=== PATIENT | female | born 1930 | race Caucasian/White ===

== ENCOUNTER 2016-11-11 10:13 | Inpatient (IN) ==
[2016-11-11] MEDS ORDERED: NS 2,000 ML ONE (10:33)
--- NOTE | 2016-11-11 10:35 | PROVIDER DOCUMENTATION ---
HPI-Syncope/Dizziness - General Stated Complaint: N/V Time Seen by Provider: 11/11/16 10:34 Source: patient, EMS Allergies/Adverse Reactions: Patient Allergies Allergy/AdvReac Type Severity Reaction Status Date / Time codeine Allergy Mild ITCHING Verified 11/11/16 11:04 Sulfa (Sulfonamide Allergy Mild ITCHING Verified 11/11/16 11:04 Antibiotics) mycins Allergy HIVES Uncoded 06/02/16 18:22 Home Medications: Home Medication List Medication Instructions Recorded Confirmed Last Taken Type LISINOpril [Prinivil] 20 mg PO DAILY 07/16/14 11/11/16 06/02/16 08:00 History Isosorbide Mononitrate E.r. [Imdur] 30 mg PO DAILY 09/23/14 11/11/16 06/02/16 History Levothyroxine [Synthroid] 50 mcg PO DAILY 09/23/14 11/11/16 06/02/16 History Omeprazole [Prilosec] 40 mg PO DAILY 09/23/14 11/11/16 06/02/16 History Furosemide 40 mg PO BID 10/29/15 11/11/16 06/02/16 08:00 History Mesalamine D.r. [Asacol Hd] 800 mg PO BID #60 tablet 11/08/15 11/11/16 06/02/16 08:00 Rx Metoprolol Succinate E.r. [Toprol 25 mg PO DAILY #30 tablet 11/08/15 11/11/16 08:00 Rx Xl] Multivits,Ca,Minerals/Iron/FA 1 each PO DAILY 06/02/16 11/11/16 06/02/16 08:30 History [Thera-M Tablet] Polyethylene Glycol 3350 [Miralax] 17 gm PO EVERY OTHER DAY 06/02/16 11/11/16 08:30 History Aspirin 81 mg PO DAILY #60 chewtab 06/07/16 11/11/16 Unknown Rx Digoxin [Lanoxin] 125 microgm PO DAILY #60 tablet 06/07/16 11/11/16 Unknown Rx Diltiazem C.d. [Cardizem Cd] 120 mg PO DAILY #30 capsule 06/07/16 11/11/16 Unknown Rx Iron Carbonyl/Ascorbic Acid 1 each PO BID #60 tablet 06/07/16 11/11/16 Unknown Rx [Icar-C] Sucralfate [Carafate Liquid] 1 gm PO Q6HR #0 udc 06/07/16 11/11/16 Unknown Rx - History of Present Illness-Syncope/Dizzy Nature of Presenting Problem: 86 yo WF dementia patient and permanent resident of [facility]. Noted to be hypotensive, sycopal/presyncopal this morning. They said she vomited but EMS did not report any emesis on site or in the truck. I do not have a baseline level of response to compare her present status. Prior Episodes: reports: no prior history Onset/Duration: reports: this morning Timing: reports: intermittent Position/Activity at time of episode: reports: sitting Symptoms prior to episode: reports: nausea/vomiting Context: reports: became unresponsive, almost passed out Loss of Consciousness: unsure Current Symptoms: reports: sweaty. denies: breathing difficulty, abdominal pain , nausea, vomiting - Dizziness Severity in ED: reports: severe Any recent trauma/injury?: reports: none Review of Systems - Adult - REVIEW OF SYSTEMS - ADULT Constitutional: reports: no symptoms reported, other (diaphoresis) Eyes: reports: no symptoms reported Ears, Nose, Mouth & Throat: reports: no symptoms reported Cardiovascular: reports: other (low bp) Respiratory: reports: no symptoms reported Gastrointestinal: reports: no symptoms reported Musculoskeletal: reports: no symptoms reported Integumentary: reports: no symptoms reported Neurological: reports: no symptoms reported Psychiatric: reports: no symptoms reported Past History - Adult - PAST MEDICAL HISTORY-ADULT Review of Records: reports: Old Records Reviewed, Nursing Assessment Review, Medications Reviewed, Social history reviewed & non-contributory. Major Childhood Illnesses: reports: denies history Cardiovascular: reports: CAD, CHF, HTN, murmur Gastrointestinal: reports: GERD, ulcer Genitourinary: reports: incontinence Neurological: reports: Alzheimer's, dementia Endocrine/Immune: reports: Diabetes, thyroid disorder - PRIOR SURGERIES/PROCEDURES Surgical/Procedure History: reports: EGD, CABG, cardiac stent, hysterectomy, hernia repair - PRIOR HOSPITALIZATIONS Prior Hospitalizations: reports: none - IMMUNIZATION STATUS Childhood Immunizations: See Nurse Assessment Flu Vaccine: See Nurse Assessment - FAMILY HISTORY Family History: reviewed, not pertinent Physical Exam-General - PHYSICAL EXAM-ADULT Initial Vital Signs Reviewed: Yes - CONSTITUTIONAL General Appearance: lethargic - EYES Eyes: PERRL/EOMI, pale conjunctivae - HEAD, EARS, NOSE, MOUTH & THROAT HENMT: moist mucous membranes - NECK Neck: negative: carotid bruit - RESPIRATORY Respiratory: lungs clear, normal breath sounds. negative: respiratory distress , stridor, wheezing - CARDIOVASCULAR Cardiovascular: normal peripheral pulses, regular rate, rhythm, no edema, no gallop, no JVD, no murmur - GASTROINTESTINAL (ABDOMEN) Abdominal Exam: normal bowel sounds, non tender, soft - MUSCULOSKELETAL Back Exam: no CVA tenderness Extremity: no pedal edema, no calf tenderness, other (left foot deformity) - SKIN Integumentary: pallor - NEUROLOGIC Neurologic: other (wehn we put her in trendelenburg she suddenly sat up and looked at us meaningfully, then laid back down gently and was again very lethargic, pupils equal and reactive.) - PSYCHIATRIC Psych/Mental Status: disoriented x 3 Progress - PLAN OF CARE/RESULTS Progress/Plan/Lab Results: Vital Signs - 8 hr 11/11/16 10:26 11/11/16 11:07 11/11/16 11:37 Temperature 97.6 F Pulse Rate 106 H 91 H 94 H Respiratory Rate 32 H 24 20 Blood Pressure 65/40 94/72 102/65 Laboratory Results - last 24 hr 11/11/16 11/11/16 11/11/16 10:37 10:37 10:37 WBC 16.31 H RBC 3.89 L Hgb 8.3 L Hct 28.9 L MCV 74.3 L MCH 21.3 L MCHC 28.7 L RDW Std Deviation 17.4 H Plt Count 663 H MPV 9.7 Immature Gran % (Auto) 0.3 Neut % (Auto) 75.0 Lymph % (Auto) 18.4 L Blount % (Auto) 4.9 Eos % (Auto) 1.2 Baso % (Auto) 0.2 Immature Gran # (Auto) 0.05 H Neut # (Auto) 12.22 H Lymph # (Auto) 3.00 Blount # (Auto) 0.80 H Eos # (Auto) 0.20 Baso # (Auto) 0.04 PT 10.7 INR 1.02 PTT (Actin FS) 22.4 Specimen Type Sample Site pH pCO2 pO2 HCO3 Base Excess Oxyhemoglobin ABG O2 Sat (Calculated) ABG O2 Saturation ABG Carboxyhemoglobin ABG Methemoglobin Tyler Test Total Hemoglobin Lactate Liter Flow Blood Gas Modality Sodium 139 Potassium 4.7 Chloride 101 Carbon Dioxide 20 L Anion Gap 18 BUN 36 H Creatinine 1.5 H Estimated GFR/1.73 m2 33 BUN/Creatinine Ratio 24 Glucose 325 H Calculated Osmolality 298 Calcium 9.8 Total Bilirubin 0.24 AST 24 ALT 10 Alkaline Phosphatase 78 Creatine Kinase 54 Troponin T Total Protein 7.5 Albumin 3.1 L Globulin 4.4 Albumin/Globulin Ratio 0.7 Urine Source Urine Color Urine Turbidity Urine pH Ur Specific [place] Urine Protein Ur Glucose (Stick) Ur Ketones (Stick) Urine Blood Urine Nitrite Urine Bilirubin Urobilinogen Dipstick Urine Leukocytes Urine WBC (Auto) Urine RBC (Auto) U Epithel Cells (Auto) Urine Bacteria (Auto) Urine Crystals Small Round Cells Urine Casts Urine Yeast-like Cells Urine Opiates Screen Ur Oxycodone Screen Ur Methadone, Qual Ur Barbiturates Screen Ur Phencyclidine Scrn Ur Amphetamines Screen U Benzodiazepines Scrn Urine Cocaine Screen U Cannabinoids Screen 11/11/16 11/11/16 11/11/16 10:37 10:56 10:56 WBC RBC Hgb Hct MCV MCH MCHC RDW Std Deviation Plt Count MPV Immature Gran % (Auto) Neut % (Auto) Lymph % (Auto) Blount % (Auto) Eos % (Auto) Baso % (Auto) Immature Gran # (Auto) Neut # (Auto) Lymph # (Auto) Blount # (Auto) Eos # (Auto) Baso # (Auto) PT INR PTT (Actin FS) Specimen Type Sample Site pH pCO2 pO2 HCO3 Base Excess Oxyhemoglobin ABG O2 Sat (Calculated) ABG O2 Saturation ABG Carboxyhemoglobin ABG Methemoglobin Tyler Test Total Hemoglobin Lactate Liter Flow Blood Gas Modality Sodium Potassium Chloride Carbon Dioxide Anion Gap BUN Creatinine Estimated GFR/1.73 m2 BUN/Creatinine Ratio Glucose Calculated Osmolality Calcium Total Bilirubin AST ALT Alkaline Phosphatase Creatine Kinase Troponin T 0.050 Total Protein Albumin Globulin Albumin/Globulin Ratio Urine Source CATH Urine Color BROWN Urine Turbidity TURBID Urine pH 5.5 Ur Specific [place] 1.013 Urine Protein 70 A Ur Glucose (Stick) NEGATIVE Ur Ketones (Stick) NEGATIVE Urine Blood LARGE A Urine Nitrite NEGATIVE Urine Bilirubin NEGATIVE Urobilinogen Dipstick NORMAL Urine Leukocytes MODERATE A Urine WBC (Auto) TNTC A Urine RBC (Auto) TNTC A U Epithel Cells (Auto) >10 A Urine Bacteria (Auto) NEGATIVE Urine Crystals NONE SEEN Small Round Cells NONE SEEN Urine Casts NONE SEEN Urine Yeast-like Cells NONE SEEN Urine Opiates Screen NONE DETECTED Ur Oxycodone Screen NONE DETECTED Ur Methadone, Qual NONE DETECTED Ur Barbiturates Screen NONE DETECTED Ur Phencyclidine Scrn NONE DETECTED Ur Amphetamines Screen NONE DETECTED U Benzodiazepines Scrn NONE DETECTED Urine Cocaine Screen NONE DETECTED U Cannabinoids Screen NONE DETECTED 11/11/16 11:05 WBC RBC Hgb Hct MCV MCH MCHC RDW Std Deviation Plt Count MPV Immature Gran % (Auto) Neut % (Auto) Lymph % (Auto) Blount % (Auto) Eos % (Auto) Baso % (Auto) Immature Gran # (Auto) Neut # (Auto) Lymph # (Auto) Blount # (Auto) Eos # (Auto) Baso # (Auto) PT INR PTT (Actin FS) Specimen Type ARTERIAL Sample Site R BRACHIAL pH 7.38 pCO2 34 L pO2 78 HCO3 21.4 Base Excess -4.5 L Oxyhemoglobin 94.9 L ABG O2 Sat (Calculated) 11.3 L ABG O2 Saturation 98.8 ABG Carboxyhemoglobin 2.00 ABG Methemoglobin 1.9 H Tyler Test NO Total Hemoglobin 8.4 L Lactate 3.50 H Liter Flow 2.0 Blood Gas Modality CANNULA Sodium Potassium Chloride Carbon Dioxide Anion Gap BUN Creatinine Estimated GFR/1.73 m2 BUN/Creatinine Ratio Glucose Calculated Osmolality Calcium Total Bilirubin AST ALT Alkaline Phosphatase Creatine Kinase Troponin T Total Protein Albumin Globulin Albumin/Globulin Ratio Urine Source Urine Color Urine Turbidity Urine pH Ur Specific [place] Urine Protein Ur Glucose (Stick) Ur Ketones (Stick) Urine Blood Urine Nitrite Urine Bilirubin Urobilinogen Dipstick Urine Leukocytes Urine WBC (Auto) Urine RBC (Auto) U Epithel Cells (Auto) Urine Bacteria (Auto) Urine Crystals Small Round Cells Urine Casts Urine Yeast-like Cells Urine Opiates Screen Ur Oxycodone Screen Ur Methadone, Qual Ur Barbiturates Screen Ur Phencyclidine Scrn Ur Amphetamines Screen U Benzodiazepines Scrn Urine Cocaine Screen U Cannabinoids Screen Orders Category Date Time Status Saline Loc NOW Care 11/11/16 10:35 Active CHEST-PORTABLE [RAD] Stat Exams 11/11/16 10:35 Taken HEAD W/O CONTRAST [CT] Stat Exams 11/11/16 10:47 Taken ABG [RESP] Routine Lab 11/11/16 11:05 Completed BLOOD CULTURE [BLDCUL] Stat Lab 11/11/16 10:41 Received CBC WITH ELECTRONIC DIFF [HEME] Stat Lab 11/11/16 10:37 Completed CK PROFILE [SP CHEM] Stat Lab 11/11/16 10:37 Completed COMPREHENSIVE METABOLIC PANEL [CHEM] Stat Lab 11/11/16 10:37 Completed LACTATE, PLASMA [CHEM] Timed Lab 11/11/16 13:00 Uncollected PROTIME WITH INR [COAG] Stat Lab 11/11/16 10:37 Completed PTT [COAG] Stat Lab 11/11/16 10:37 Completed TROPONIN T Stat Lab 11/11/16 10:37 Completed URINALYSIS W/POSS RFLX CULT-1 [URINALYSIS] Stat Lab 11/11/16 10:56 Completed URINE CULTURE [RM] Routine Lab 11/11/16 11:10 Received URINE DRUG SCREEN Stat Lab 11/11/16 10:56 Completed URINE MANUAL MICROSCOPIC [URINALYSIS] Stat Lab 11/11/16 10:56 Completed 0.9% Sodium Chloride Inj [Ns] 1,000 ml Med 11/11/16 10:33 Discontinued .ROUTE As Directed 0.9% Sodium Chloride Inj [Ns] 1,000 ml Med 11/11/16 11:06 Active IV 999 mls/hr 0.9% Sodium Chloride Inj [Ns] 1,000 ml Med 11/11/16 11:07 Active IV 999 mls/hr 0.9% Sodium Chloride Inj [Ns] 190 ml Med 11/11/16 12:00 Active IV As Directed Piperacil/Tazobact 3.375 gm/Ns [Zosyn 3.375 gm/Ns] Med 11/11/16 11:24 Discontinued 3.375 gm in 50 ml IV NOW Pulse Oximetry Stat Oth 11/11/16 10:35 Completed EKG [EKG] Stat Ther 11/11/16 10:35 Ordered Result Diagrams: 11/11/16 10:37 11/11/16 10:37 - CHANGE OF SHIFT REPORT (ED Provider) Report Given and Care Transferred to:: [facility] Time of Transfer: 11:56 Departure - Departure Time of Disposition Decision: 11:56 DIAGNOSIS: Sepsis, UTI (urinary tract infection), Hypotension Disposition: ADMITTED INPATIENT 09 Certified Medical Emergency: Emergent Condition: Stable - Critical Care Note This patient required my direct & personal management of CC.: No
[2016-11-11 11:02] LABS: URINE SOURCE CATH
[2016-11-11 11:06] LABS: URINE MICRO REVIEW NEEDED? YES
[2016-11-11] MEDS ORDERED: NS 1,000 ML IV ONE ×2 (11:06→11:07)
[2016-11-11 11:08] LABS: BASO% 0.2 % (0.0-0.8); EOS% 1.2 % (0.0-10.0); HEMATOCRIT 28.9 % (37.0-47.0); HEMOGLOBIN 8.3 g/dL (12.0-16.0); IMM GRAN# 0.05 X1000 (0.0-0.04); IMM GRAN% 0.3 % (0.0-0.5); LYMPH% 18.4 % (20.5-51.1); MANUAL DIFF NEEDED? NO; MCH 21.3 PG (27-31); MCHC 28.7 g/dL (33-37); MCV 74.3 FL (81-99); MONO% 4.9 % (1.7-9.3); MPV 9.7 FL (7.4-10.4); PLT 663 X1000 (130-400); RBC 3.89 XMIL (4.2-5.4)
[2016-11-11 11:08] LABS: BILIRUBIN URINE NEGATIVE (NEGATIVE); BLOOD URINE LARGE (NEGATIVE); COLOR BROWN; GLUCOSE URINE NEGATIVE (NEGATIVE); LEUKOCYTES URINE MODERATE (NEGATIVE); NITRITE URINE NEGATIVE (NEGATIVE); PH URINE 5.5; PROTEIN URINE 70 mg/dL (NEGATIVE); SP GRAVITY URINE 1.013; TURBIDITY URINE TURBID (CLEAR); UROBILINOGEN URINE NORMAL (NORMAL)
[2016-11-11 11:08] LABS: ALLEN TEST NO; BE -4.5 mmoll (-3.0-3.0); BLOOD TYPE ARTERIAL; DRAW SITE R BRACHIAL; METHB 1.9 % (0.0-1.5); O2(CT) 11.3 mL/dL (15.0-23.0); PCO2(98.6) 34 mmHg (35-45); PO2(98.6) 78 mmHg (60-100); SAMPLE BLOOD; SAO2 98.8 % (95.0-100.0); THB 8.4 g/dL (11.5-17.4); pH(98.6) 7.38 (7.35-7.45)
[2016-11-11 11:09] LABS: MODALITY CANNULA
[2016-11-11 11:09] LABS: URINE RBC TNTC /HPF (<10); URINE WBC TNTC /HPF (<10)
[2016-11-11 11:10] LABS: UR EPITHELIAL CELLS >10 /HPF (<10); URINE BACTERIA NEGATIVE /HPF; URINE CASTS NONE SEEN; URINE CRYSTALS NONE SEEN; URINE CULTURE NEEDED? YES; URINE SMALL ROUND CELLS NONE SEEN
[2016-11-11 11:20] LABS: INR 1.02; PROTIME 10.7 Seconds (9.2-11.7); PTT 22.4 Seconds (22.0-36.0)
[2016-11-11] MEDS ORDERED: ZOSYN 3.375 GM/NS 3.375 GM/50 ML IVPB IV ONE (11:24)
[2016-11-11 11:49] LABS: UR AMPHETAMINES QUAL NONE DETECTED (NONE DETECT); UR BARBITUATES QUAL NONE DETECTED (NONE DETECT); UR BENZODIAZEPIN QUAL NONE DETECTED (NONE DETECT); UR CANNABINOIDS QUAL NONE DETECTED (NONE DETECT); UR COCAINE QUAL NONE DETECTED (NONE DETECT); UR METHADONE QUAL NONE DETECTED (NONE DETECT); UR OPIATES QUAL NONE DETECTED (NONE DETECT); UR OXYCODONE QUAL NONE DETECTED (NONE DETECT); UR PCP QUAL NONE DETECTED (NONE DETECT)
[2016-11-11 11:53] LABS: ALBUMIN 3.1 g/dL (3.5-5.0); CALCIUM 9.8 mg/dL (8.8-10.2); POTASSIUM 4.7 mmol/L (3.5-5.1); TOTAL BILIRUBIN 0.24 mg/dL (0.20-1.00); TOTAL PROTEIN 7.5 g/dL (6.3-8.3)
[2016-11-11] MEDS ORDERED: NS 190 ML IV ONE (12:00)
--- NOTE | 2016-11-11 12:04 | ED EKG INTERP ---
This chart was entered by Yadi Andre Scribe, acting as scribe for Abner Mccabe MD. EKG Interpretation - EKG Time of EKG reading by physician:: 10:18 EKG Read and Signed by:: Abner Mccabe EKG Interpretation (*Must complete 3 of following elements*): Abnormal Rate: 93 Rhythm: SR W/ MARKED SINUS ARRYTHMIA [place]: left QRS: LVH, other (ANTERIOR INFARCT, AGE UNDETERMINED) This chart was documented by the indicated scribe, (Yadi Andre Scribe) and accurately reflects the services I performed and decisions made by , Abner Mccabe MD, as attested by the provider's signature.
--- NOTE | 2016-11-11 12:35 | Diag Imaging Result Document ---
PROCEDURE NAME: HEAD W/O CONTRAST - 11/11/2016 CT HEAD WITHOUT CONTRAST: COMPARISON: 11/03/2015. FINDINGS: There is stable diffuse brain atrophy. There is stable patchy low attenuation in the periventricular and subcortical white matter suggesting at least [id number] microangiopathy. There is no evidence of acute infarct given the limited sensitivity of CT versus MRI. There is no discrete intracranial mass, mass effect, or intracranial hemorrhage. Surrounding soft tissues and bony structures are essentially unremarkable. IMPRESSION: Stable chronic changes but no evidence of acute pathology.
--- NOTE | 2016-11-11 12:40 | Diag Imaging Result Document ---
PROCEDURE NAME: CHEST-PORTABLE - 11/11/2016 SINGLE FRONTAL RADIOGRAPH OF THE CHEST: COMPARISON: 11/04/2015. FINDINGS: There is stable elevation of the right hemidiaphragm. Inspiration is suboptimal. There is probably mild atelectasis at the left lung base. The lungs are grossly clear, otherwise. Cardiac silhouette is somewhat prominent but stable. IMPRESSION: Stable chest with no definite acute pathology.
[2016-11-11 13:05] LABS: HEMOGLOBIN A1C 5.8 % (4.8-6.0)
[2016-11-11] MEDS ORDERED: VANCOMYCIN IV PER PHARMACY MISC SCH (13:47)
[2016-11-11] MEDS: NS 1,000 ML IV SCH ×2 (14:15→16:29)
[2016-11-11] MEDS: CARAFATE LIQUID PO SCH ×2 (14:15→19:39)
[2016-11-11 14:36] LABS: RETIC% 2.31 % (0.8-2.1); RETIC-HE 21.8 PG (28.2-36.6)
--- NOTE | 2016-11-11 14:45 | HISTORY AND PHYSICAL ---
CHIEF COMPLAINT: Nausea, vomiting and weakness. HISTORY OF PRESENT ILLNESS: Mrs. Kumar is an 86-year-old female with a history of dementia, CAD, hypertension, hypothyroidism, atrial fibrillation and history of GI bleed who presents to the ER today apparently for nausea, vomiting and minimal responsiveness. Unfortunately the patient is not able to give us any type of history given her mental status but we do have a report from the [facility]. [facility] resides at [facility] and she was noted to be hypotensive and vomiting this morning and possibly had a syncopal episode. She was brought to the ER today, head CT was done. It showed chronic changes. Nothing acute. Chest x- ray is negative. Her laboratory data and vital signs are consistent with severe sepsis however[place] [id number], a lactate of 3.5, and creatinine of 1.5, and a very large UTI. She is also having diffuse diarrhea as noted by the ER staff. This is currently being evaluated for Clostridium difficile. Her blood pressure has come up with IV fluids and the rest of her hemodynamics are stable. We did discuss with her daughter who lives in [place] this situation and she has made her mother a DNR level 1. PAST MEDICAL HISTORY: 1. Gastrointestinal bleed in June of last year with multiple gastric polyps that were found to be benign. 2. CAD. 3. Dementia. 4. Hypertension. 5. Hypothyroidism. 6. Osteoporosis. 7. Atrial fibrillation. 8. GERD. SURGICAL HISTORY: Abdominal hernia repair with mesh placement, hysterectomy, CABG. SOCIAL HISTORY: Patient resides at [facility]. No history of tobacco, alcohol or drug use. FAMILY HISTORY: Noncontributory. HOME MEDICATIONS: Aspirin 81 mg daily. Lanoxin 125 mcg daily. Cardizem CD 120 mg p.o. daily. Lasix 40 mg b.i.d. Icar-C b.i.d. Isosorbide mononitrate 30 mg daily. Synthroid 50 mcg daily. Prinivil 20 mg daily. Asacol 800 mg p.o. b.i.d. Toprol-XL 25 mg p.o. daily. Thera-M vitamin 1 daily. Prilosec 40 mg daily. MiraLAX 17 g as needed. Carafate 1 g every 6 hours. ALLERGIES: To codeine, sulfonamide and "mycins." REVIEW OF SYSTEMS: Unable to obtain. PHYSICAL EXAMINATION: VITAL SIGNS: Blood pressure is 124/54, heart rate 94, respiratory rate is 18, O2 sats 97% on 3 L nasal cannula. Temperature is 97.6 degrees. GENERAL: This is a cachectic, frail and elderly appearing 86-year-old female, lying in hospital bed. No acute distress. NEUROLOGIC: The patient will open eyes to verbal stimulus but she will not follow purposeful commands. HEENT: Head is atraumatic, normocephalic. Her pupils are equal, sluggish bilaterally. Oral mucosa is dry. Trachea is midline. Neck is supple. CHEST: Clear to auscultation bilaterally. CV: Regular rate and rhythm. S1, S2 is noted. 2-3/6 systolic ejection murmur noted. GI: Soft, nondistended. She does have some grimacing to deep palpation of the abdomen and this is diffusely. EXTREMITIES: No edema. Pulses palpable but diminished bilaterally. DIAGNOSTIC DATA: Head CT shows chronic changes, nothing acute. Chest x-ray shows nothing acute. EKG shows sinus rhythm with sinus arrhythmia. WBC 16.31, hemoglobin 8.3, hematocrit 28.9, MCV 74.3, platelet count 663,000. PT 10.7, INR 1.02. ABG on 2 L pH 7.38, CO2 34, O2 78, bicarb 21.4. Lactate 3.5. Sodium 139, potassium 4.7, chloride 101, CO2 20. Anion gap 18. BUN 36, creatinine 1.5, glucose 325. A1c 5.8. LFTs within normal limits. Troponin negative. Albumin 3.1. UA shows large urinary tract infection. ASSESSMENT AND PLAN: 1. Sepsis: This is severe sepsis given her elevated lactic acid. Source is likely her urinary tract infection, blood cultures have been obtained and Zosyn has been started. We are also going to put her on vancomycin IV. Given her diarrhea we are also going to evaluate for Clostridium difficile colitis with stool studies. Antibiotic regimen will need to be tailored to those results. We will continue IV fluids and pressors if needed. Repeat lactic acid is pending. 2. Urinary tract infection: As above. 3. Diarrhea: As above. 4. Microcytic anemia: Likely nutritional related. Iron studies are pending. We will continue her Icar. 5. Atrial fibrillation: Currently sinus. Will continue her home medications. She is not a candidate for anticoagulation given her history of gastrointestinal bleeding. 6. Hypertension: Chronic and stable, continue home medications. 7. Acute kidney injury: Creatinine noted to be 1.5, which is higher than normal. Will discontinue any nephrotoxic medications and hydrate. Urine studies are also pending. 8. DVT prophylaxis with SCDs and TEDs. Further recommendations to follow. Dictated by GHADA Bray for Sera Sorensen MD cc: GHADA Bray MD The patient was seen and examined by me. I agree with the assessment and plan as dictated. AV
[2016-11-11] MEDS ORDERED: VANCOMYCIN 1 GM/NS 1 GM/250 ML IVPB IV SCH (16:00)
[2016-11-11 16:15] LABS: IRON SATURATION 22 %; TIBC 294 ug/dL; TOTAL IRON 64 ug/dL (49-151); UNBOUND IRON 230 ug/dL (112-346)
[2016-11-11] MEDS: HUMULIN R SUBQ SCH ×2 (16:29→20:00)
[2016-11-11] MEDS: ZOSYN 2.25 GM/NS 2.25 GM/50 ML IVPB IV SCH (17:48)
[2016-11-11] MEDS: ICAR-C PO SCH (21:59)
[2016-11-11] MEDS: ASACOL HD PO SCH (22:00)
[2016-11-11] MEDS ORDERED: NS 500 ML IV ONE (23:18)
[2016-11-12] MEDS: ZOSYN 2.25 GM/NS 2.25 GM/50 ML IVPB IV SCH ×3 (00:30→11:14)
[2016-11-12] MEDS: CARAFATE LIQUID PO SCH ×2 (01:44→08:40)
[2016-11-12] MEDS: NS 1,000 ML IV SCH (05:00)
[2016-11-12] MEDS ORDERED: PROTONIX IV SCH (07:00)
[2016-11-12] MEDS ORDERED: SYNTHROID PO SCH (07:00)
[2016-11-12 07:02] LABS: HEMATOCRIT 24.6 % (37.0-47.0); MCH 21.5 PG (27-31); MCHC 28.5 g/dL (33-37); MCV 75.5 FL (81-99); MPV 9.2 FL (7.4-10.4); RBC 3.26 XMIL (4.2-5.4)
[2016-11-12] MEDS: SODIUM CHLORIDE 0.9% INJ SCH ×2 (07:17→18:21)
[2016-11-12] MEDS: HUMULIN R SUBQ SCH ×4 (07:18→20:20)
[2016-11-12 07:21] LABS: CALCIUM 8.7 mg/dL (8.8-10.2); POTASSIUM 3.6 mmol/L (3.5-5.1)
[2016-11-12] MEDS ORDERED: 1/2 NS 1,000 ML IV SCH (07:58)
[2016-11-12] MEDS ORDERED: CALMOSEPTINE OINTMENT TOP PRN (07:59)
[2016-11-12] MEDS: ICAR-C PO SCH (08:40)
[2016-11-12] MEDS: ASACOL HD PO SCH (08:40)
[2016-11-12] MEDS ORDERED: THERA M PLUS PO SCH (09:00)
[2016-11-12] MEDS ORDERED: ASPIRIN PO SCH (09:00)
[2016-11-12] MEDS ORDERED: SODIUM CHLORIDE 0.9% INJ PRN (09:06)
[2016-11-12] MEDS ORDERED: SODIUM CHLORIDE 0.9% INJ ONE (09:06)
[2016-11-12] MEDS ORDERED: SYNTHROID IV ONE (09:06)
[2016-11-12] MEDS: D5 1/2 NS 1,000 ML IV SCH (10:10)
--- NOTE | 2016-11-12 11:53 | Diag Imaging Result Document ---
PROCEDURE NAME: THORAX/ABDOMEN/PELVIS W/O CONT - 11/12/2016 CT CHEST ABDOMEN AND PELVIS WITHOUT CONTRAST: COMPARISON: CT abdomen and pelvis dated 10/29/2015. No prior CT chest is available for comparison. FINDINGS: CHEST: There is patchy infiltrate at both lung bases. There is probably also a component of atelectasis. There is no significant pleural fluid collection. There is no pneumothorax. There is fibrosis at the right lung apex. Confluent with this fibrosis, there is a 9.5-mm nodular density on image 23 of series 3. Probably, this is a nodular component of the scarring. However, a follow-up chest CT is recommended initially in 3 months based on Fleischner Society criteria. There is cardiomegaly. There is mitral valve and aortic valve calcification as well as coronary artery and extensive aortic calcification. There is a calcified mediastinal lymph node indicating prior granulomatous disease. There is a fairly large hiatal hernia with about 1/3 of the stomach in the thoracic cavity. There are degenerative changes involving the thoracic spine. The bony structures appear to be intact. There is a 1.2 cm nodule in the lower inner quadrant of the left breast. It is stable as compared to the previous study on 10/29/2015. However, it is indeterminate. ABDOMEN/PELVIS: There is thickening and extensive inflammatory stranding associated with the distal transverse colon, the splenic flexure, descending colon, and at least the proximal sigmoid colon indicating nonspecific colitis. Infectious, inflammatory, or, less likely , ischemic etiology should be considered. There is no evidence of bowel obstruction. There is a rectal fecal impaction with the diameter of the impacted rectum measuring up to 7.3 cm. There is uncomplicated sigmoid diverticulosis coli. A Granado catheter is in the urinary bladder and the bladder is nondistended. There are a few moderate size ventral abdominal wall hernias that are stable and contain only fat. There has been a previous cholecystectomy. There is extensive aortic and iliac artery atherosclerotic calcification and calcification involving several major aortic branches. There is mild dilation of the superior left renal pelvis that appears to be hyperattenuating, perhaps because it contains blood products. This is not seen on the previous study. The upper pole of the left kidney appears vaguely masslike. It is difficult to evaluate further without IV contrast. Consider addition of IV contrast if not contraindicated. Otherwise, renal ultrasound may be helpful. There are several intermediate density nodules arising from both kidneys that probably represent blood-filled cysts. Again, a contrast-enhanced CT or renal ultrasound would be helpful. In the left periaortic region at the level of the left kidney, there is a new jaden mass that measures 3 3.4 x 2.8 cm axially. Malignant lymphadenopathy cannot be excluded. The remainder of the solid viscera of the abdomen and pelvis and the remainder of the GI tract is essentially unremarkable. There are degenerative changes involving the lumbar spine. The bony structures are grossly intact, otherwise. IMPRESSION: 1. Patchy infiltrate at both lung bases, likely with a component of atelectasis. 2. Scarring and a small nodular density at the right lung apex. Please see above discussion. 3. Cardiomegaly. 4. Large hiatal hernia. 5. Nonspecific colitis Involving the distal transverse colon, the splenic flexure, descending colon, and the proximal sigmoid colon. 6. Rectal fecal impaction. 7. Suggestion of mild dilation of the superior left renal collecting system that is somewhat dense and probably contains blood products. The upper pole of the left kidney appears slightly masslike. Please see above discussion. 8. New jaden mass in the left periaortic region at the level of the left kidney. Malignant lymphadenopathy cannot be excluded. Please see above discussion. 9. Other incidental/nonacute findings detailed above. [facility]
[2016-11-12] MEDS ORDERED: FLAGYL 500 MG/NS 500 MG/100 ML IVPB IV SCH (12:00)
[2016-11-12] MEDS ORDERED: NS 250 ML ONE (12:05)
--- NOTE | 2016-11-12 14:20 | PROGRESS NOTE ---
DATE: 11/12/2016 SUBJECTIVE: The patient complains of nausea and vomiting. She is also having gross hematuria. The patient so far has had 2 liquid stools was well. OBJECTIVE: Vital Signs: Temperature 97.1 degrees, blood pressure 139/83, heart rate 89, respirations 27, O2 saturation is 99% on 2 L nasal cannula. General: This is a chronically ill- appearing, elderly female, lying in bed, in no acute distress. Head: Normocephalic, atraumatic. Heart: S1, S2. Normal. Regular rate and rhythm. Lungs: Coarse breath sounds at the bases. Equal air entry bilaterally. Abdomen: Positive bowel sounds. Soft. Mild tenderness on deep palpation. Extremities: No edema. No cyanosis. No calf tenderness. Neurologic: The patient is alert and oriented. She is able to move all 4 extremities. LABS: White blood cell count 19, hemoglobin 7, hematocrit 24, platelets 405, 000. Sodium 141, potassium 3.6, chloride 114, CO2 22, BUN 30, creatinine 1.2, glucose 138, calcium 8.7. CT of the chest, abdomen, and pelvis reveals infiltrate at both lung bases. Small nodular density in the right lung. Large hiatal hernia. Nonspecific colitis. Rectal fecal impaction. Possible left kidney mass. Left periaortic region jaden mass. ASSESSMENT AND PLAN: 1. Pneumonia. Will continue on IV antibiotic therapy plus bronchodilator therapy and supplemental oxygen. 2. Colitis. We will add Flagyl to be antibiotic regimen and consult GI. 3. Gross hematuria. The CT findings were reviewed. Will consult the urologist for further recommendations. 4. Left lung mass. Aware. We will continue to monitor this closely. 5. Possible left kidney mass. Will order a renal ultrasound. 6. Periaortic jaden mass/lymphadenopathy. Will discuss these findings with the patient's Power of Mail Room Clerk and determine whether they would like surgical involvement for possible biopsy. 7. Leukocytosis. Continue with IV antibiotic therapy. 8. Anemia of acute blood loss. Will transfuse the patient with 1 unit of packed red blood cells. The patient's iron studies were unremarkable. This may be secondary to the hematuria that the patient is having at this time. 9. Gastrointestinal prophylaxis. Continue on IV Protonix. 10. Hypothyroidism. Will switch the patient to IV Synthroid. 11. I left a message with the patient's Power of business attorney to call me for an update on the patient's medical condition. cc: Sera Sorensen MD MTDD
[2016-11-12] MEDS: ZOSYN 3.375 GM/NS 3.375 GM/50 ML IVPB IV SCH ×2 (16:43→22:07)
--- NOTE | 2016-11-12 16:48 | Diag Imaging Result Document ---
PROCEDURE NAME: US RENAL 2 (RETROPER) COMPLETE - 11/12/2016 RENAL ULTRASOUND: COMPARISON: None available. FINDINGS: Note that this study is limited as the patient could not cooperate with the exam. She was not able to maintain a breath hold and was unable to maintain adequate positioning. There is also excess bowel gas. Unfortunately, the left kidney, which appeared pathologic on a recently unenhanced CT is largely obscured. It measures approximately 9.9 cm in the greatest longitudinal axis. Although no discrete masses can be identified on this study, the images should be considered essentially nondiagnostic for evaluating the left kidney. Still, a mass cannot be excluded. The right kidney is much better visualized. There are a few small simple-appearing cysts arising from the right renal cortex. No solid mass is identified involving the right kidney. The right kidney measures up to 10.6 cm. The right renal cortex measures up to 1 cm in thickness. The largest of the right renal cyst measures up to 1.6 cm. There is a Granado catheter in the urinary bladder, which is nondistended. IMPRESSION: 1. Very poor visualization of the left kidney for the reasons discussed above, rendering this study virtually nondiagnostic for detection of a potential mass involving the left kidney. Please see above discussion. 2. Several small simple-appearing renal cysts on the right. The right kidney is grossly unremarkable, otherwise. [facility]
--- NOTE | 2016-11-12 18:00 | CONSULTATION ---
DATE OF CONSULTATION: 11/12/2016 NOTE: The patient is unable provide a history. No family member is present. The history was taken from a review of the data in the computer. CONCLUSION: Patient was admitted with nausea, vomiting and weakness. She has bilateral pulmonary infiltrates suggesting pneumonia. She also on the CT scan had evidence of colitis and also a rectal fecal impaction. RECOMMENDATIONS: I agree with treating the patient with vancomycin and Zosyn. Since the patient's stool is negative for Clostridium difficile toxin and antigen, I think Flagyl can be discontinued. DISCUSSION: The patient is unable provide a history as mentioned above. LABORATORY/IMAGING: Her CBC shows a white count of 19,420, hemoglobin 7, platelet count 405,000. Blood gases show a pH of 7.38, a PO2 of 78, a pCO2 of 34. The creatinine is 1.2. The GFR is 42. Drug screen was negative. Blood, urine and stool cultures are negative. Stool ova and parasite is negative and stool for Clostridium difficile antigen and toxin was negative. CT scan shows bilateral infiltrates, diffuse colitis. A CT of the brain shows microangiopathy. REVIEW OF SYSTEMS: This was unable to be obtained. PAST MEDICAL HISTORY: Positive for GI bleeding, coronary artery disease, dementia, hypertension, hypothyroidism, osteoporosis, atrial fibrillation and gastroesophageal reflux disease. PAST SURGICAL HISTORY: Positive for abdominal hernia repair with mesh replacement, hysterectomy, and coronary artery bypass grafting. SOCIAL HISTORY: The patient lives at [facility]. There is no history of smoking, alcohol consumption or drug use. FAMILY HISTORY: Said to be noncontributory. HOME MEDICATIONS: Aspirin, Lanoxin, Cardizem, Lasix, Icar, Synthroid, Prinivil, Asacol, Toprol, vitamins, Prilosec, MiraLAX, Carafate. ALLERGIES: Patient has allergies to codeine, sulfonamide, and mycin. PHYSICAL EXAMINATION: Vital Signs: Temperature is 98.1 degrees, pulse 86, respirations 23, blood pressure 134/63. General: This is a chronically ill-appearing elderly female. She is in no acute distress. Head, eyes, ears, nose and throat: No drainage noted from the nose or ears. She appeared able to hear my spoken words and see near objects. Neck: No meningismus. Lungs: Clear to auscultation. Cardiovascular: Heart rate was regular. Abdomen: Soft. There was a hernia present in the epigastric area. Neurologic: Patient is awake. She did not answer my questions. She did follow request to move her extremities, but she barely moved her arms and legs. Integument: No rash noted. Bones, joints, muscles: Patient had deformities to her hands and wrist consistent I think with some type of arthritis. Integument: No rash noted Thank you for the consult. cc: Augustin Hayden MD
[2016-11-12] MEDS: PROTONIX IV SCH (18:21)
--- NOTE | 2016-11-12 19:31 | CONSULTATION ---
DATE OF CONSULTATION: 11/12/2016 PRIMARY ROLLER TURNER: Dr. Palacio. REASON FOR CONSULTATION: Nausea, vomiting, diarrhea. HISTORY OF PRESENT ILLNESS: Ms. Kumar is an 86-year-old female who was admitted to the hospital on 11/11/2016 with complaints of weakness, nausea, vomiting, and altered mental status. In the hospital she was covered for a UTI, urosepsis and started on IV antibiotics. She was noted to have intermittent nausea and vomiting and diarrhea during her stay. She had imaging done, chest, abdomen, and pelvis CT which showed evidence of 1) patchy infiltrate at both lung bases, likely with a component of atelectasis, 2) scarring and a small nodular density at the right lung apex, 3) cardiomegaly, 4) large hiatal hernia, 5) nonspecific colitis involving the distal transverse colon, splenic flexure, and descending colon, and proximal sigmoid colon, 6) rectal fecal impaction was noted, 7) suggestion of mild dilation of the superior left renal collecting system and that is somewhat dense and probably contains blood products. The upper pole of the left kidney appears likely masslike. New jaden mass in the left periaortic region at the level of left kidney; malignant adenopathy cannot be excluded. During the course of the hospital stay she has also been noted to have new onset hematuria. Nephrology has already been consulted. The patient has had a recent EGD done with Dr. Palacio on 06/05/2016 which showed gastric polyps, distal esophageal diverticulum, hiatal hernia, large Schatzki ring, and multiple gastric polyps and duodenitis. Prior to that, she had a colonoscopy done in 2013 which showed 1) severe colitis with pseudomembranes, 2) diverticulosis, 3) internal and external hemorrhoids. At that time she was diagnosed with ischemic colitis. Based on her current imaging, CT scan findings she could still have ischemic colitis. She was hypotensive secondary to urosepsis on admission. History was obtained from the patient's records and chart and RN as the patient has dementia. PAST MEDICAL HISTORY: 1. Gastrointestinal bleed in June. 2. Ischemic colitis in 2013. 3. Dementia. 4. Hypertension. 5. UTIs. 6. Hypothyroidism. 7. Osteoporosis. 8. Atrial fibrillation. 9. GE reflux disease and large hiatal hernia. PAST SURGICAL HISTORY: 1. Abdominal hernia repair with mesh placement. 2. Hysterectomy. 3. CABG. 4. EGD in 05/2016. 5. Colonoscopy in 2013. SOCIAL HISTORY: Resides at [facility]. No history tobacco, alcohol, or illicit drugs. FAMILY HISTORY: Noncontributory. MEDICATIONS: At home: 1. Aspirin 81 mg a day. 2. Lanoxin 125 mcg every day. 3. Cardizem CD 120 mg once daily. 4. Lasix 40 mg b.i.d. 5. Icar C b.i.d. 6. Isosorbide mononitrate 30 mg daily. 7. Synthroid 50 mcg daily. 8. Prinivil 20 mg daily. 9. Asacol 800 mg p.o. b.i.d. 10. Toprol-XL 20 mg p.o. daily. 11. Multivitamin once daily. 12. Prilosec 40 mg daily. 13. MiraLAX 17 g every day as needed. 14. Carafate 1 g 6 hours. ALLERGIES: Codeine, sulfonamides, and mycin. REVIEW OF SYSTEMS: Not able to obtain secondary to dementia. MEDICATIONS: In the hospital include: 1. Dextrose 5% half normal at 75 mL/hour. 2. Sliding scale Humulin regular insulin. 3. Synthroid 25 mcg IV daily. 4. Menthol/zinc oxide ointment topical as needed. 5. Protonix 40 mg IV b.i.d. 6. Vancomycin per pharmacy. 7. Zosyn 3.375 g IV q.6 hours. PHYSICAL EXAMINATION: Vital signs: Temperature 97.8 degrees, pulse rate of 86 , respiratory rate , blood pressure 146/76, saturating 100% on 2 L. General: Moderately built, moderately nourished, lying in bed, in no acute distress. HEENT: Pale conjunctiva. No icterus. Pupils equal, reactive to light. Neck: Supple. Chest: Decreased Breath sounds at the bases. Cardiovascular: Tachycardic. Abdomen: Soft. Abdominal wall hernia noted. Bowel sounds are hypoactive. No rebound or guarding. Extremities: No cyanosis, clubbing. Neurologic: She was sleeping. Was able to wake on command. Has baseline dementia. She answers most of the questions as yes and no. LABS: White count of 19.4, hemoglobin and hematocrit are 7 and 24.6, platelet count of 405,000. INR 1.02, PT of 10.7, PTT of 22.4. ABG, pH of 7.38, pCO2 34, PO2 78, lactate of 3.5. Sodium 149, potassium 3.6, chloride of 114, bicarb of 22, anion gap of 13, BUN of 30, creatinine 1.2, glucose of 138, calcium is 8.7. Iron studies show percent saturation of 22%. Plasma lactate is 5.7. Vitamin B12 level is 998. Urinalysis showing positive UTI. Urine and blood cultures have been drawn x2, currently pending. Stool culture preliminary, no enteric pathogen. Stool for white cells, moderate. Stool for C. difficile toxin is negative. C. difficile antigen is also negative. Ova and parasites negative. Urine culture preliminary, no growth. Stool for occult blood is negative. IMPRESSIONS: 1. Nausea, vomiting, diarrhea, and evidence of nonspecific colitis in the left colon, likely ischemic colitis vs infectious etiology. 2. History of history of bleeding gastric polyps in May 2016, status post EGD by Dr. Palacio. 3. History of colonoscopy in 2013 showing ischemic colitis. 4. Hematuria with questionable lesion in the kidneys. Urology has been consulted. 5. Anemia. 6. Urosepsis. RECOMMENDATIONS: 1. The patient is currently on IV fluids and IV antibiotics per the primary team. Blood cultures have been drawn which are currently pending. 2. The patient will continue on PPIs b.i.d. for now. We will type and cross and transfuse to keep hematocrit more than 25%. 3. Patient will be given soapsuds enema two of them now and once at bedtime to help with the fecal impaction. 4. Urology has been consulted for evaluation of hematuria and possible kidney mass. 5. The patient is covered with antibiotic, Zosyn, which will cover for colitis as well. 6. Further recommendations to follow pending hospital course. I discussed the plan with the patient's nurse at bedside. Dr. Palacio will be available tomorrow to resume care. cc: MD Augustin Tyler MD Sergey S. Ananyev, MD Jeanette Keith, MD Katherine Takundwa, MD [facility]
--- NOTE | 2016-11-12 20:25 | CONSULTATION ---
DATE OF CONSULTATION: 11/12/2016 REQUESTING PHYSICIAN: Dr. Sorensen with hospitalist service. CONSULTATION FOR: Gross hematuria. HISTORY OF PRESENT ILLNESS: An 86-year-old female who is admitted per record for vomiting, hypotension and possible syncopal episode. Of note, the history is obtained from records as the patient has advanced dementia and does not communicate or answer the questions. The patient had Granado catheter placed and nursing staff noted hematuria. There were no reported clots. There was no report of difficulty introducing Granado catheter. Again, patient is not coherent enough to answer questions about previous episodes of hematuria. There was a suspicion for a UTI however her urinalysis shows no bacteria. PAST MEDICAL HISTORY: Dementia, hypertension, hypothyroidism, atrial fibrillation, GERD, coronary artery disease, history of GI bleed, osteoporosis. PAST SURGICAL HISTORY: Coronary bypass graft, hysterectomy, hernia repair with mesh placement ventrally. ALLERGIES: Codeine, sulfa and mycins. HOME MEDICATIONS: Carafate, MiraLAX, Prilosec, multivitamin, Toprol, Asacol, Prinivil, Synthroid, ISMN, Cardizem, Lasix, Lanoxin. FAMILY HISTORY: Unobtainable. SOCIAL HISTORY: She resides in a assisted. There is no reported history of tobacco, alcohol or drug use. REVIEW OF SYSTEMS: Unable to obtain secondary to her dementia. PHYSICAL EXAMINATION: T 97.8 degrees, P 86, BP 146/76.General: No acute distress. Pleasant appearing female. HEENT: Normocephalic, atraumatic. Cardiovascular: Regular rate and rhythm. Abdomen: Nontender, nondistended. : Bladder is nontender to palpation, Granado catheter in place. No groin lymphadenopathy. Dermatologic: No obvious skin rashes. PERTINENT LABORATORY DATA: White cell count of 19,000, hematocrit of 24.6, creatinine of 1.2. Urinalysis positive for blood and white blood cells but negative for bacteria. PERTINENT IMAGES: CT of the chest, abdomen and pelvis on 11/12/2016 showing mild left hydronephrosis with hyperdense material concerning for blood as well as a periaortic lymphadenopathy. Renal ultrasound 11/12/2016 reported poorly visualized left kidney hence no conclusive diagnosis regarding the renal mass was made by the radiologist. There were simple renal cysts on the right side. ASSESSMENT: An 86-year-old female with advanced dementia and multiple comorbidities who has gross hematuria without evidence of urinary tract infection. Her CT scan suggests that she may have bled from her left upper collecting system which could be a concern for a urothelial carcinoma of the left renal pelvis. I have attempted to contact the patient's daughter who is also reportedly [id number] in [place] but could not interchange agent and left a message. The plan would be if the daughter is in agreement to perform cystoscopy with bilateral retrograde pyelograms and possible left ureteroscopy with biopsy. Certainly her advanced age and dementia need to be taken consideration and it should be up to the family to decide. It does appear that she dropped her hematocrit and she is getting a unit of pack red blood cells. Without any other obvious evidence of bleeding, if she continues to require transfusions then decision will have to be made whether to be aggressive versus conservative. PLAN: I will contact the daughter again regarding possible cystoscopy with retrograde pyelograms and left ureteroscopy with biopsy. Thank you for consultation. cc: Lanre Farias MD
[2016-11-13] MEDS: D5 1/2 NS 1,000 ML IV SCH (00:19)
[2016-11-13] MEDS: ZOSYN 3.375 GM/NS 3.375 GM/50 ML IVPB IV SCH ×4 (04:40→23:37)
[2016-11-13 05:03] LABS: CALCIUM 9.1 mg/dL (8.8-10.2); POTASSIUM 3.3 mmol/L (3.5-5.1)
--- NOTE | 2016-11-13 06:12 | EKG Report ---
Test Performed on : 11/11/2016 10:18:16 AM Test Reason : AMS Blood Pressure : / mmHG Vent. Rate : 093 BPM Atrial Rate : 093 BPM P-R Int : 134 ms QRS Dur : 100 ms QT Int : 374 ms P-R-T Axes : 049 -35 084 degrees QTc Int : 465 ms Sinus rhythm. with marked sinus arrhythmia. Left axis deviation Left ventricular hypertrophy with repolarization abnormality Anterior infarct , age undetermined Abnormal ECG When compared with ECG of 07-JUN-2016 09:26, premature atrial complexes. are no longer present Anterior infarct is now present ST now depressed in Lateral leads Unconfirmed Result
[2016-11-13] MEDS: HUMULIN R SUBQ SCH ×4 (06:24→21:04)
[2016-11-13] MEDS: SYNTHROID IV SCH (06:38)
[2016-11-13] MEDS: SODIUM CHLORIDE 0.9% INJ SCH ×2 (06:38→18:47)
[2016-11-13] MEDS: D5W 1,000 ML IV SCH ×2 (06:39→21:03)
[2016-11-13] MEDS: PROTONIX IV SCH ×2 (06:39→18:47)
[2016-11-13 06:42] LABS: BASO% 0.1 % (0.0-0.8); EOS# 0.03 X1000 (0.0-0.7); EOS% 0.1 % (0.0-10.0); HEMOGLOBIN 8.6 g/dL (12.0-16.0); IMM GRAN# 0.07 X1000 (0.0-0.04); IMM GRAN% 0.3 % (0.0-0.5); LYMPH# 1.08 X1000 (1.2-3.4); LYMPH% 5.2 % (20.5-51.1); MANUAL DIFF NEEDED? YES; MCH 22.3 PG (27-31); MCHC 29.7 g/dL (33-37); MCV 75.3 FL (81-99); MONO# 1.15 X1000 (0.11-0.59); MONO% 5.6 % (1.7-9.3); MPV 9.1 FL (7.4-10.4); NEUT% 88.7 % (42.2-75.2); PLT 416 X1000 (130-400); RBC 3.85 XMIL (4.2-5.4)
[2016-11-13 08:10] LABS: BANDS 2 % (0-1); HYPOCHROM 1+; LYMPHS 2 % (21-51); MONO 8 % (1-9)
--- NOTE | 2016-11-13 08:15 | Diag Imaging Result Document ---
PROCEDURE NAME: CHEST-PORTABLE - 11/13/2016 PORTABLE CHEST X-RAY, 11/13/2016: COMPARISON: 11/11/2016. FINDINGS: Stable cardiomegaly. There is significant worsening pulmonary vascular congestion. There are ill-defined perihilar infiltrates that are interstitial. No pneumothorax or large pleural effusion. IMPRESSION: Pulmonary vascular congestion and pulmonary edema.
--- NOTE | 2016-11-13 13:27 | PROGRESS NOTE ---
DATE: 11/13/2016 SUBJECTIVE: Patient has no complaints. No nausea, vomiting. Still with hematuria. Still with frequent voluminous stools. OBJECTIVE: Vital signs: Blood pressure 159/82, heart rate of 95, respiratory rate 24, temperature 99.1 degrees, 97% on room air. Cardiovascular: Regular rate and rhythm. Pulmonary: Bilateral breath sounds. Clear to auscultation. GI: Soft, nontender, nondistended. Bowel sounds are positive. LABORATORY DATA: White count is up to 20, hemoglobin and hematocrit of 8 and 29, platelets of 416,000. Chemistries: Sodium is up to 152, potassium 3.3, magnesium of 1.8. TSH was normal. Micro occult stool is negative. Urine culture is negative. O P is negative. C. difficile is negative. Fecal white blood cells are positive. Stool culture is negative. PROBLEM LIST: 1. Gross hematuria with urothelial mass. Plan for cystoscopy today. 2. Pneumonia. She is on antibiotics, specifically with vancomycin and Zosyn and seems to be doing okay. Vancomycin is day 3 and Zosyn is day 2. Flagyl has been discontinued because she tested negative for C. difficile, although she is still having a lot of bowel movements but that may be related to residual issues associated with her impaction. 3. Colitis. She is on antibiotics. Stool cultures are clear. Just continue to follow. 4. Left lung mass. Aware. Just kind of monitoring that for the time being. 5. Anemia. Her blood count has improved. We will continue to follow closely. 6. Disposition. Pending the rest of her workup. She is a DNR it looks like. I think she could probably be transitioned to the floor soon. She seems stable otherwise. Pending the rest of her workup. 7. Hypernatremia. Will continue D5 infusion and follow closely. cc: Julian Shields MD
[2016-11-13] MEDS ORDERED: KETAMINE (DOSE) ONE (16:44)
[2016-11-13] MEDS ORDERED: VERSED ONE (16:44)
[2016-11-13] MEDS ORDERED: AMIDATE ONE (16:56)
[2016-11-13] MEDS ORDERED: XYLOCAINE-MPF 2% ONE (16:56)
--- NOTE | 2016-11-13 21:53 | PROGRESS NOTE ---
DATE: 11/13/2016 PRESENT ILLNESS: The patient appears to have a pneumonia. She also on CT scan has evidence of colitis. Finally there is a periaortic jaden mass the etiology of which is uncertain at this time. MEDICATIONS: The patient is receiving vancomycin and Zosyn. PHYSICAL EXAMINATION: Vital Signs: Temperature is 100 degrees, pulse 96, respirations 30, blood pressure 173/91. General: This is a chronically ill-appearing, elderly female. She is in no acute distress. Cardiovascular: Heart rate is rapid and irregular. Lungs: There were bilateral rhonchi. Abdomen: Soft, nontender. Neurologic: The patient is lethargic. She is arousable. She did talk. She did move her extremities. LAB AND X-RAY: Today the CBC has a white count of 20,720, hemoglobin 8.6 and platelet count 416,000. Creatinine is 1, GFR is 52. Chest x-ray has bilateral infiltrates possibly due to infection or pulmonary edema. Blood and urine cultures are sterile. ASSESSMENT AND PLAN: For now I will continue with the patient's antibiotics. I suspect the patient does have a component of pneumonia. She also has colitis. The result of the biopsy of the periaortic node is pending. COMORBIDITIES: She is very elderly. She has gastroesophageal reflux disease, atrial fibrillation, coronary artery disease and dementia. cc: Augustin Hayden MD
[2016-11-13] MEDS: MORPHINE IV PRN (23:38)
[2016-11-14] MEDS: ZOSYN 3.375 GM/NS 3.375 GM/50 ML IVPB IV SCH ×4 (05:57→20:18)
[2016-11-14] MEDS: PROTONIX IV SCH ×2 (06:01→18:19)
[2016-11-14] MEDS: SYNTHROID IV SCH (06:01)
[2016-11-14] MEDS: D5W 1,000 ML IV SCH (06:01)
[2016-11-14] MEDS: HUMULIN R SUBQ SCH ×4 (06:05→22:00)
[2016-11-14 06:25] LABS: BASO% 0.2 % (0.0-0.8); EOS# 0.24 X1000 (0.0-0.7); EOS% 1.7 % (0.0-10.0); HEMATOCRIT 27.6 % (37.0-47.0); HEMOGLOBIN 8.2 g/dL (12.0-16.0); IMM GRAN# 0.05 X1000 (0.0-0.04); IMM GRAN% 0.3 % (0.0-0.5); LYMPH# 1.39 X1000 (1.2-3.4); LYMPH% 9.7 % (20.5-51.1); MANUAL DIFF NEEDED? NO; MCH 22.2 PG (27-31); MCHC 29.7 g/dL (33-37); MCV 74.8 FL (81-99); MONO# 0.98 X1000 (0.11-0.59); MONO% 6.8 % (1.7-9.3); MPV 8.7 FL (7.4-10.4); NEUT% 81.3 % (42.2-75.2); PLT 378 X1000 (130-400); RBC 3.69 XMIL (4.2-5.4)
[2016-11-14 06:37] LABS: CALCIUM 8.4 mg/dL (8.8-10.2); POTASSIUM 2.9 mmol/L (3.5-5.1)
--- NOTE | 2016-11-14 08:01 | Diag Imaging Result Document ---
PROCEDURE NAME: PHIL ABDOMEN - 11/14/2016 SUPINE RADIOGRAPH OF THE ABDOMEN AND PELVIS: COMPARISON: 02/17/2016. FINDINGS: There is only a fairly small amount of stool in the rectum. Bowel gas and stool patterns are essentially unremarkable, otherwise. There is no definite large volume free abdominal gas. There is no definite organomegaly. There are degenerative changes involving the spine and SI joints. IMPRESSION: Only a fairly small amount of stool in the rectum. Essentially unremarkable, otherwise.
--- NOTE | 2016-11-14 09:27 | Diag Imaging Result Document ---
PROCEDURE NAME: RETROGRADES 2 OR 3 FILMS - 11/13/2016 BILATERAL RETROGRADE PYELOURETEROGRAM: COMPARISON: None available. FINDINGS: The right and left ureters appear to be grossly normal in course and caliber. There is renal caliceal blunting on the left and there appears to be non-opacification of the left upper pole collecting system on the left. This could be due to an upper pole mass, which was also suggested on a recent unenhanced CT. In the opacified portion of the left renal collecting system, there appear to be a couple of filling defects. These may represent gas bubbles. No radiopaque stones were seen on the previous CT. IMPRESSION: As above. Please correlate with live fluoroscopic imaging.
[2016-11-14 10:43] LABS: INR 1.07; PROTIME 11.3 Seconds (9.2-11.7)
[2016-11-14] MEDS ORDERED: KLOR-CON PO ONE (10:55)
--- NOTE | 2016-11-14 11:21 | PROGRESS NOTE ---
DATE: 11/14/2016 SUBJECTIVE: Patient has no focal complaints. OBJECTIVE: Blood pressure is 130/75, heart rate of 92, respiratory rate of 27 and temp 98.3 degrees, 95% on room air.Cardiovascular: Regular rate and rhythm. Pulmonary: Bilateral breath sounds clear to auscultation. GI: Soft, nontender, nontender. Bowel sounds are positive. LABORATORY DATA: White count of 14, H and H of 8 and 27. Platelets 378,000. Chemistry: Potassium is 2.9, phos of 1.6. PROBLEM LIST: 1. Pneumonia. She is currently on vancomycin and Zosyn day 4 and day 3 and appears to be stable. 2. Urothelial mass. Cystoscopy I think was completed but I do not have any data yet. 3. Colitis appears to be improving. We will continue to monitor. 4. Anemia stable currently. 5. Hypokalemia, hypophosphatemia. Will supplement and follow. DISPOSITION: Pending the rest of her workup I think she is probably stable for step-down at this point. cc: Julian Shields MD
[2016-11-14] MEDS ORDERED: POTASSIUM PHOSPHATE 40 MEQ in NS 250 ML IV ONE (12:00)
[2016-11-14] MEDS ORDERED: NS 250 ML ONE (12:14)
[2016-11-14] MEDS: VANCOMYCIN 1 GM/NS 1 GM/250 ML IVPB IV SCH (13:42)
--- NOTE | 2016-11-14 18:16 | PROGRESS NOTE ---
DATE: 11/14/2016 SUBJECTIVE: There is per nursing staff no change in her breathing status. She is in no visible pain. OBJECTIVE: Vital Signs: T 99.3 degrees, P 88, BP 130/76, she has 625 mL recorded of urinary output. General: No acute distress. Abdomen: Nontender, nondistended. : Granado catheter in place. Her urine still has some red sediment at the bottom of the tube but is clearer than yesterday or 2 days ago. PERTINENT LABORATORIES: Her hematocrit is 27.6, creatinine is 0.9, her urine culture showed no growth. ASSESSMENT/PLAN: An 86-year-old female with gross hematuria and no evidence of urinary tract infection. On imaging she has suspicion for a blood clot in the upper pole of left renal collecting system. She underwent cystoscopy with bilateral retrograde pyelograms yesterday. She did have what appeared to be a filling defect in the left upper pole of the collecting system. She likely has a tumor that could have bled and caused her hematuria. Her bladder did not have any pathology. Per her daughter's wishes who also has power of assistant clinical director she is not to proceed with any aggressive treatments. Thus I ruled out something like a tumor or a bleeding vessel, hemorrhagic cystitis from the bladder. PLAN: 1. Recommend Granado catheter per primary team. 2. No further intervention will be done per daughter's request. 3. Please call with questions. cc: Lanre Farias MD
[2016-11-14] MEDS: SODIUM CHLORIDE 0.9% INJ SCH (18:19)
--- NOTE | 2016-11-14 20:10 | PROGRESS NOTE ---
DATE: 11/14/2016 PRESENT ILLNESS: The patient has pneumonia and as seen on CT scan colitis. There also is a periaortic jaden mass which has been biopsied. MEDICATIONS: The patient is on a combination of vancomycin and Zosyn. This is day 3 of the antibiotics. PHYSICAL EXAMINATION: Vital Signs: Temperature is 99.3, pulse 88, respirations 27, blood pressure 130/76. Generally: This is an elderly female. She is in no acute distress. Lungs: Clear to auscultation. Cardiovascular: Irregular heart rate. Abdomen: And flanks soft and nontender. Neurologic: Patient is lethargic. She does not carry on a conversation for long, but she did move her extremities to request. LABORATORY AND X-RAY: There is no new x-ray today. CBC for today shows a white count of 14,390, hemoglobin is 8.2, and platelet count is 378,000. Creatinine 0.9. GFR is 59. ASSESSMENT AND PLAN: 1. Patient has pneumonia and colitis. The plan is to continue with her antibiotics, namely vancomycin and Zosyn. The reason the biopsy of the biopsy report of the periaortic node is pending. 2. Comorbidities: She is elderly. She has gastroesophageal reflux disease, atrial fibrillation, coronary artery disease and dementia. cc: Augustin Hayden MD
[2016-11-15] MEDS: ZOSYN 3.375 GM/NS 3.375 GM/50 ML IVPB IV SCH ×4 (03:00→21:53)
[2016-11-15 06:14] LABS: HEMOGLOBIN 7.4 g/dL (12.0-16.0); MCH 22.6 PG (27-31); MCHC 29.6 g/dL (33-37); MCV 76.5 FL (81-99); MPV 8.8 FL (7.4-10.4); RBC 3.27 XMIL (4.2-5.4)
[2016-11-15] MEDS: HUMULIN R SUBQ SCH ×4 (06:35→21:53)
[2016-11-15] MEDS: PROTONIX IV SCH ×3 (06:44→21:53)
[2016-11-15] MEDS: SYNTHROID PO SCH (07:33)
[2016-11-15 11:24] LABS: AGAP 12; BUN 7 mg/dL (8-22); CALCIUM 8.2 mg/dL (8.8-10.2); CHLORIDE 117 mmol/L (98-107); COSMO 293; POTASSIUM 3.5 mmol/L (3.5-5.1); SODIUM 149 mmol/L (136-145); TCO2 20 mmol/L (25-35)
--- NOTE | 2016-11-15 11:31 | PROGRESS NOTE ---
DATE: 11/15/2016 SUBJECTIVE: Patient resting. When she awakens, she has no focal complaints. OBJECTIVE: Vital Signs: Blood pressure 144/85, heart rate of 86, respiratory rate of 23, temperature 98 degrees, satting 95% on room air. Cardiovascular: Regular rate and rhythm. Pulmonary: Bilateral breath sounds. Clear to auscultation. GI: Soft, nontender, nondistended. Bowel sounds are positive. Extremity exam: No clubbing or cyanosis. Lymphatic exam: No peripheral edema. LABORATORY DATA: Phosphorus 3.1, magnesium 1.5. Waiting on her electrolytes. White count is down to 11, hemoglobin and hematocrit of 7 and 25, platelets of 325. PROBLEM LIST: 1. Pneumonia. She is on day 5 and day 4 of vancomycin and Zosyn respectively. I will defer to Dr. Hayden about the final recommendations. She does have a PICC line, so we can do intravenous antibiotics if required. I am not sure if that will be absolutely essential, but we will follow. 2. 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 Per discussion with Dr. Farias and family, they will not pursue any other further treatment or imaging modalities. We are just going to watch that which I would consider, but also to mean that we would consider palliative care in this setting because she does have chronic hematuria. 3. Colitis with Clostridium difficile negativity. Appears to be improving. 4. Anemia has progressed somewhat. I am going to monitor right now and not pursue further transfusion. 5. Hypokalemia, hypophosphatemia. Supplement as needed. DISPOSITION: I think she could go the floor today and possibly back to the [facility] tomorrow. cc: Julian Shields MD
--- NOTE | 2016-11-15 12:56 | OPERATIVE NOTE ---
PROCEDURE DATE: 11/13/2016 SURGEON: Lanre Farias MD. PREOPERATIVE DIAGNOSIS: Gross hematuria, concern for left upper pole collecting system filling defect or tumor. PROCEDURES: 1. Cystoscopy. 2. Bilateral retrograde pyelograms. INDICATIONS: This is an 86-year-old female with advanced dementia who was admitted to the hospital. In the process a Granado catheter was placed and she developed gross hematuria. There was no evidence of infection. Her hematocrit dropped, necessitating transfusion of a unit of red blood cells. I was consulted. The patient is not able to make decisions due to her advanced dementia and decision was made via her Power of Roller Repairer to evaluate hematuria but not to pursue more aggressive measures. In the meantime, she had a CT scan performed which revealed suspicion for left upper pole renal lesion involving collecting system. FINDINGS: Unremarkable cystoscopy, normal right retrograde pyelogram, left retrograde pyelogram revealing a filling defect in the upper pole concerning for a tumor. There was no evidence of active bleeding. In the bladder. PROCEDURE IN DETAIL: After obtaining informed consent, patient was brought to the operative room. Perioperative antibiotics and monitored anesthesia care were administered. She was placed in the lithotomy position, prepped and draped in sterile fashion. A 21-Persian rigid cystoscope was used to gain access to the bladder which was then examined in systematic fashion. She had no evidence of mucosal lesions, excessive trabeculations, or diverticula noted. There was no evidence of active bleeding within the bladder. I turned attention to the right ureteral orifice and 50% diluted Omnipaque dye was injected into the orifice via the cone-tipped ureteral catheter. The retrograde pyelogram revealed delicate caliceal system without evidence of hydronephrosis or filling defects. We then performed the same thing on the left side. It revealed a delicate ureter and fairly delicate caliceal system with exception to what appeared to be filling defect and lack of filling of the upper pole of the left renal collecting system. I suspect it is due to a tumor. We then emptied the bladder, the cystoscope was removed, a 16-Persian Granado catheter was reintroduced, and she was awakened and taken to PACU for further recovery. ESTIMATED BLOOD LOSS: None. COMPLICATIONS: None. DISPOSITION: To PACU and back to ICU with Granado catheter to gravity drainage. I discussed with nursing staff that she had no obvious bleeding in her bladder such as tumor or a hemorrhagic cystitis. I did not pursue left renal pelvis biopsy as her Power of Roller Repairer's wishes were not to pursue more aggressive treatment. cc: Lanre Farias MD
[2016-11-15] MEDS: LANOXIN PO SCH (19:18)
[2016-11-15] MEDS: TOPROL XL PO SCH (19:18)
[2016-11-15] MEDS: CARDIZEM CD PO SCH (19:22)
[2016-11-15] MEDS: SODIUM CHLORIDE 0.9% INJ SCH (21:53)
--- NOTE | 2016-11-16 00:55 | CONSULTATION ---
DATE OF CONSULTATION: 11/15/2016 REFERRING PHYSICIANS: Dr. Sera Sorensen M.D. and Dr. Obed Shields M.D. INDICATION FOR CONSULTATION: 1. Nausea with vomiting. 2. Anemia. HISTORY OF PRESENT ILLNESS: The patient is an 86-year-old white female with severe dementia, who is admitted for evaluation of nausea with vomiting and weakness. She was found to be minimally responsive on the day of admission. Her clinical course has been remarkable in that she was hypotensive on admission. She was subsequently found to have sepsis, as well as a urinary tract infection. She was noted to have hematuria. She underwent urologic evaluation , and was found to have a mass in her kidney. Based on this finding, the family has decided to pursue palliative care. According to the nurses, the [id number] for health care does not wish to have a GI consult. From a GI perspective, there has been no obvious GI bleeding. She remains anemic, but has had no acute GI blood loss. After reviewing the chart and reviewing her films, I spoke with the nursing staff in the ICU. They confirmed the family's wishes. In light of this, I will sign off. Thank you for allowing me to participate in her care. cc: MD Julian Gotti MD MTDD
[2016-11-16] MEDS: ZOSYN 3.375 GM/NS 3.375 GM/50 ML IVPB IV SCH ×4 (04:04→21:02)
[2016-11-16] MEDS: SYNTHROID PO SCH (06:00)
[2016-11-16 06:29] LABS: HEMATOCRIT 26.4 % (37.0-47.0); HEMOGLOBIN 7.8 g/dL (12.0-16.0); MCH 22.5 PG (27-31); MCHC 29.5 g/dL (33-37); MCV 76.1 FL (81-99); RBC 3.47 XMIL (4.2-5.4)
[2016-11-16] MEDS: HUMULIN R SUBQ SCH ×4 (06:33→22:44)
--- NOTE | 2016-11-16 08:49 | PROGRESS NOTE ---
DATE: 11/16/2016 PRESENT ILLNESS: The patient has pneumonia and colitis. There also is a periaortic node which has been biopsied, but the report is not yet back. MEDICATIONS: This has been day 5 of treatment with a combination of vancomycin and Zosyn. PHYSICAL EXAMINATION: Vital Signs: Temperature is 98.4 degrees, pulse 88, respirations 16, blood pressure 156/86. General: This is a somewhat chronically ill-appearing, elderly female. She is in no acute distress. Lungs: Clear to auscultation. Cardiovascular: Heart rate was irregular. Abdomen: Soft and nontender. Neurologic: Patient is awake. I was able to converse with her. She could move her extremities. There was no tremor. LAB AND X-RAY: There is no new x-ray. The patient's CBC shows a white count of 13,090, hemoglobin 7.8 and platelet count 232,000. Creatinine 0.8. GFR is greater than 60. Chest x-ray results are pending. ASSESSMENT AND PLAN: Patient has pneumonia and colitis. My plan will be to continue with vancomycin and Zosyn. COMORBIDITIES: The patient's comorbidities include being very elderly, gastroesophageal reflux disease, atrial fibrillation, coronary artery disease, and dementia. cc: Augustin Hayden MD
[2016-11-16] MEDS: CARDIZEM CD PO SCH (09:59)
[2016-11-16] MEDS: LANOXIN PO SCH (09:59)
[2016-11-16] MEDS: SODIUM CHLORIDE 0.9% INJ SCH ×2 (10:00→21:02)
[2016-11-16] MEDS: PROTONIX IV SCH ×2 (10:00→21:02)
[2016-11-16] MEDS: TOPROL XL PO SCH (10:01)
[2016-11-16] MEDS: VANCOMYCIN 1 GM/NS 1 GM/250 ML IVPB IV SCH (10:24)
[2016-11-16] MEDS: D5 1/2 NS 1,000 ML IV SCH (16:18)
--- NOTE | 2016-11-16 17:12 | PROGRESS NOTE ---
DATE: 11/16/2016 SUBJECTIVE: Patient has no focal complaints. She is awake, alert, lying in bed. OBJECTIVE: Vital signs: Blood pressure 144/73, heart rate of 87, respiratory rate 16, temperature 98.3 degrees, 97% on room air. Cardiovascular: Regular rate and rhythm. She does have a systolic ejection murmur 3/6 at the left upper sternal border. Pulmonary: Bilateral breath sounds. Clear to auscultation. GI: Soft, nontender, nondistended. Bowel sounds are positive. LABORATORY: White count 13, hemoglobin and hematocrit 7 and 26, platelets 332,000. Sodium is 149. PROBLEM LIST: 1. Progressive hematuria associated with urothelial mass which the family is not interested in resecting we are pursuing palliative care measures. 2. Pneumonia. She is on day 6 of vancomycin and day 5 of Zosyn. I think we can probably pursue Augmentin tomorrow. Dr. Hayden did not really say that we are going to do long-term treatment but we will follow. 3. Anemia secondary to persistent hematuria. I do not think there is going to be a fix for this per se. She may need transient transfusions but the family is not planning to be aggressive and this is going to be a slow steady decline. 4. Disposition is to the go back to the intermediate and I think pursue comfort care measures. We are arranging that at this time. cc: Julian Shields MD
[2016-11-17] MEDS: D5 1/2 NS 1,000 ML IV SCH (05:01)
[2016-11-17] MEDS: ZOSYN 3.375 GM/NS 3.375 GM/50 ML IVPB IV SCH ×2 (05:01→09:59)
[2016-11-17] MEDS: SYNTHROID PO SCH (06:15)
[2016-11-17] MEDS: HUMULIN R SUBQ SCH ×3 (06:16→15:59)
[2016-11-17 06:48] LABS: AGAP 10; BUN 5 mg/dL (8-22); CALCIUM 8.7 mg/dL (8.8-10.2); CHLORIDE 107 mmol/L (98-107); COSMO 276; POTASSIUM 3.2 mmol/L (3.5-5.1); SODIUM 139 mmol/L (136-145); TCO2 22 mmol/L (25-35)
[2016-11-17] MEDS: TOPROL XL PO SCH (09:58)
[2016-11-17] MEDS: LANOXIN PO SCH (09:58)
[2016-11-17] MEDS: CARDIZEM CD PO SCH (09:58)
[2016-11-17] MEDS: SODIUM CHLORIDE 0.9% INJ SCH (09:59)
[2016-11-17] MEDS: PROTONIX IV SCH (09:59)
--- NOTE | 2016-11-17 10:00 | PROGRESS NOTE ---
DATE: 11/17/2016 PRESENT ILLNESS: The patient has pneumonia, colitis and hematuria. She also had a periaortic node, which was biopsied but the report is not yet back. MEDICATIONS: This is day 6 of treatment with a combination of vancomycin and Zosyn. PHYSICAL EXAMINATION: Vital Signs: Temperature is 97.4 degrees, pulse 84, respirations 20, blood pressure 154/80. General: This is an ill-appearing, elderly female who is very confused, and not oriented as to time or place. Lungs: Clear to auscultation. Cardiovascular: Heart rate was regular. Abdomen: Soft and nontender. Neurologic: Patient is awake. As mentioned above, she was not oriented as to time or place. She could not answer different questions that I asked her. LAB AND X-RAY: The CBC shows a white count of 13,090, hemoglobin 7.8, and a platelet count of 332,000. Creatinine is 0.8. GFR is greater than 60. Stool for Clostridium difficile toxin is negative. Urine cultures negative. Stool for O and P and for culture is negative as well. ASSESSMENT AND PLAN: The patient has pneumonia, colitis and hematuria. Also, as mentioned above, she had a periaortic node which was biopsied but the report is not yet back. Since the family does not want to pursue further diagnostic studies, and would like the patient to have comfort care, I think would be reasonable to send her back to the nursing facility on oral antimicrobial agents. I would suggest giving the patient Augmentin 875 mg p.o. every 12 hours, and Cipro 500 mg p.o. every 12 hours both for a total of 5 days. COMORBIDITIES: Include she is very elderly. She has gastroesophageal reflux disease, atrial fibrillation, coronary artery disease, and dementia. cc: Augustin Hayden MD
[2016-11-17] MEDS: MORPHINE IV PRN (10:01)
[2016-11-17 10:28] LABS: HEMATOCRIT 25.8 % (37.0-47.0); HEMOGLOBIN 7.8 g/dL (12.0-16.0); MCH 22.5 PG (27-31); MCHC 30.2 g/dL (33-37); MCV 74.6 FL (81-99); MPV 9.1 FL (7.4-10.4); RBC 3.46 XMIL (4.2-5.4)
[2016-11-17 11:53] VITALS: BP 151/82
[2016-11-17] MEDS ORDERED: VANCOMYCIN 1 GM/NS 1 GM/250 ML IVPB IV SCH (13:00)
--- NOTE | 2016-11-17 15:03 | DISCHARGE SUMMARY ---
ADMISSION DATE: 11/11/2016 DISCHARGE DATE: 11/17/2016 DISCHARGE DIAGNOSES: 1. Pneumonia, presumed hospital-acquired. 2. Hematuria associated with urothelial renal mass of unknown type, although suspicious for malignancy. 3. Anemia secondary to persistent hematuria. 4. Dementia. CONSULTATIONS: 1. Dr. Augustin Hayden, Infectious Disease. 2. Dr. Gary Leone, Gastroenterology, for possible Clostridium difficile which she did not end up having. 3. Dr. Lanre Farias, for hematuria and renal mass. PROCEDURES: Cystoscopy per Dr. Lanre Farias on 11/15/2016 showing obstruction of the left upper pole collecting system filling defect or tumor. HOSPITAL COURSE: Cystoscopy was okay. There was no gross bleeding. However, left renal pelvis biopsy was not pursued because of the patient's [id number] did not want to be further aggressive with this. The patient was maintained on antibiotics. She completed day 6 of vancomycin and Zosyn prior to discharge. Clinically, she is stable. Vital Signs: Temperature is 98.2. Labs look good. White count 13, hemoglobin and hematocrit 7 and 25, platelets 338,000. Her hemoglobin has essentially been stable for 3 days. Although it has been on the low side, it has been stable for 3 days despite some intermittent hematuria. A retrograde pyelogram showed normal ureters, upper pole mass. CT abdomen and pelvis, showed patchy infiltrate. Cardiomegaly. Nonspecific colitis which was Clostridium difficile negative. Fecal impaction which may explain colitis and a new jaden mass left periaortic region. There was discussion that it was biopsied, but I do not see that it was actually biopsied at this point. Head CT was nonacute. The patient was felt stable for discharge on 11/17/2016 and [facility] DISCHARGE MEDICATIONS: 1. Augmentin 875 q. 12 for 5 days. 2. Cipro 500 b.i.d. for 5 days. 3. Lanoxin 125 daily. 4. Cardizem CD 120 daily. 5. Lasix 40 b.i.d. 6. Icar-C b.i.d. 7. Imdur 30 daily. 8. Synthroid 50 daily. 9. Lisinopril 20 daily. 10. Asacol HD 800 b.i.d. 11. Toprol-XL 25 daily. 12. Multivitamin daily. 13. Prilosec 40 daily. 14. MiraLAX 17 daily. 15. Sucralfate 1 g 6. DISCHARGE CONDITION: Stable. TIME SPENT: 32 minute discharge. cc: MD Gary Lewis MD Leroy F. Harris, MD Sergey S. Ananyev, MD Jeanette Keith, MD
--- NOTE | 2016-11-17 17:09 | PALLIATIVE CARE CONSULTATION ---
DATE: 11/17/2016 REQUESTING PHYSICIAN: Dr. Shields. REASON FOR CONSULTATION: Goals of care. HISTORY OF PRESENT ILLNESS: This is an 86-year-old, female with a past medical history of advanced dementia, hypertension, hypothyroidism, osteoporosis, atrial fibrillation, gastroesophageal reflux disease, and history of a GI bleed. She was most recently admitted on 11/11/2016 after transferring from [facility] to the emergency department with nausea, vomiting, and minimal responsiveness. At that time, workup revealed findings consistent with severe sepsis. Therefore she was admitted for further evaluation. During admission the patient had a Granado catheter placed and the nursing staff noted hematuria. Urology was consulted for further evaluation. A cystoscopy and bilateral retrograde pyelograms were performed. The left retrograde pyelogram revealed a filling defect in the upper pole concerning for a tumor. There was no evidence of active bleed at that time. The family had decided not to pursue biopsy and declined any further aggressive treatment. Ms. Kumar continues to have hematuria. Currently Ms. Kumar is sitting up in the hospital bed. She is very confused. She has advanced dementia and I am not able to obtain any history from her. I will attempt to touch base with Ms. Kumar's daughter to help determine goals of care. REVIEW OF SYSTEMS: Unable to review. PAST MEDICAL HISTORY: See HPI. PAST SURGICAL HISTORY: 1. Abdominal hernia repair with mesh placement. 2. Hysterectomy. 3. CABG. SOCIAL HISTORY: Prior to this admission she was a resident at [facility]. Alcohol, tobacco and drug use have been denied. Her daughter Naomy Lopez is her power of trial attorney and resides in [place]. FAMILY HISTORY: None pertinent. PHYSICAL EXAMINATION: General: This is a elderly appearing 86-year-old, female, who is confused but pleasant. HEENT: Atraumatic, normocephalic. Neck: Trachea is midline. Cardiovascular: Regular rate and rhythm. Pulmonary: Lung sounds are clear. Respirations are nonlabored. Abdomen: Soft. Extremities: Pulses are palpable. Neuro: Confused. IMPRESSION: This is an 86-year-old, female with a past medical history as listed above in the HPI. I was able to touch base with Ms. Kumar's daughter, Naomy Lopez who also acts as her power of trial attorney. We went over all of the findings that have occurred during this hospital stay. She confirmed that she does not want any aggressive measures done for her mother. We talked about hospice services. She is agreeable to those services. I believe the plan is to discharge Ms. Kumar back to [facility]. The daughter states that she will contact [facility] and set up hospice services once she is discharged back there. Ms. Kumar is a DNR level 1. All questions regarding hospice services were answered. At this time I feel like Ms. Kumar's palliative performance scale is 30%. I feel like her dementia FAST scale is a C. The palliative care team will continue to follow. Thank you for this consultation. Dictated by GHADA Cook for Javier Ruiz MD cc: GHADA Cook MD [facility]
== END 2016-11-17 16:54 ==
LOC: ED 10:13 → ICU 12:58 → SUATTDRO 12:58 → 4N 11-15 18:45
PROVIDERS: ATTEND Internal Medicine

== ENCOUNTER 2016-11-21 04:11 | Observation (INO) ==
--- NOTE | 2016-11-21 04:34 | PROVIDER DOCUMENTATION ---
HPI-Abdominal Pain/GI Problem - General Chief Complaint: GI Bleed Stated Complaint: upper gi bleed Time Seen by Provider: 11/21/16 04:24 Source: EMS Allergies/Adverse Reactions: Patient Allergies Allergy/AdvReac Type Severity Reaction Status Date / Time codeine Allergy Mild ITCHING Verified 11/11/16 11:04 Sulfa (Sulfonamide Allergy Mild ITCHING Verified 11/11/16 11:04 Antibiotics) mycins Allergy HIVES Uncoded 06/02/16 18:22 Home Medications: Home Medication List Medication Instructions Recorded Confirmed Last Taken Type LISINOpril [Prinivil] 20 mg PO DAILY 07/16/14 11/21/16 11/20/16 07:00 History Isosorbide Mononitrate E.r. [Imdur] 30 mg PO DAILY 09/23/14 11/21/16 11/20/16 07 :00 History Levothyroxine [Synthroid] 50 mcg PO DAILY 09/23/14 11/21/16 11/20/16 07:00 History Omeprazole [Prilosec] 40 mg PO DAILY 09/23/14 11/21/16 11/20/16 07:00 History Furosemide 40 mg PO BID 10/29/15 11/21/16 11/20/16 20:00 History Mesalamine D.r. [Asacol Hd] 800 mg PO BID #60 tablet 11/08/15 11/21/16 11/20/16 20:00 Rx Metoprolol Succinate E.r. [Toprol 25 mg PO DAILY #30 tablet 11/08/15 11/21/16 07:00 Rx Xl] Multivits,Ca,Minerals/Iron/FA 1 each PO DAILY 06/02/16 11/21/16 11/20/16 07:00 History [Thera-M Tablet] Polyethylene Glycol 3350 [Miralax] 17 gm PO EVERY OTHER DAY 06/02/16 11/21/16 08:30 History Digoxin [Lanoxin] 125 microgm PO DAILY #60 tablet 06/07/16 11/21/16 11/20/16 07: 00 Rx Diltiazem C.d. 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 Pt has advanced demtia and can follow simple commands but was unaware that she had vomited. She denies any pain or nausea currently Review of Systems - Adult - REVIEW OF SYSTEMS - ADULT ROS:: unobtainable per condition Constitutional: denies: fever Past History - Adult - PAST MEDICAL HISTORY-ADULT Review of Records: reports: Old Records Reviewed, Nursing Assessment Review, Medications Reviewed, Social history reviewed & non-contributory. Major Childhood Illnesses: reports: denies history Cardiovascular: reports: CAD, CHF, HTN, murmur Gastrointestinal: reports: GERD, ulcer Genitourinary: reports: incontinence Neurological: reports: Alzheimer's, dementia Endocrine/Immune: reports: Diabetes, thyroid disorder - PRIOR SURGERIES/PROCEDURES Surgical/Procedure History: reports: EGD, CABG, cardiac stent, hysterectomy, hernia repair - PRIOR HOSPITALIZATIONS Prior Hospitalizations: reports: none - IMMUNIZATION STATUS Childhood Immunizations: See Nurse Assessment Flu Vaccine: See Nurse Assessment - FAMILY HISTORY Family History: reviewed, not pertinent Physical Exam-General - PHYSICAL EXAM-ADULT Initial Vital Signs Reviewed: Yes - CONSTITUTIONAL General Appearance: appears well, alert, no apparent distress - EYES Eyes: pink conjunctivae. negative: scleral icterus - HEAD, EARS, NOSE, MOUTH & THROAT HENMT: normocephalic/atraumatic, pharynx normal, other (dried brown secretions about lips) - NECK Neck: non-tender, full range of motion, supple, normal inspection - RESPIRATORY Respiratory: chest non-tender, lungs clear, normal breath sounds, no pleuratic chest pain, no respiratory distress, no accessory muscle use - CARDIOVASCULAR Cardiovascular: regular rate, rhythm, no edema, no murmur - GASTROINTESTINAL (ABDOMEN) Abdominal Exam: normal bowel sounds, non tender, soft, no organomegaly, no pulsatile mass - MUSCULOSKELETAL Back Exam: normal inspection, no CVA tenderness, no vertebral tenderness Extremity: non-tender, no pedal edema, no calf tenderness - SKIN Integumentary: normal color, normal turgor, warm/dry - NEUROLOGIC Neurologic: jig borer II-XII nml as tested, grossly normal, no motor/sensory deficits - PSYCHIATRIC Psych/Mental Status: normal mood/affect. negative: oriented x 3 Progress - PLAN OF CARE/RESULTS Progress/Plan/Lab Results: Vital Signs - 8 hr 11/21/16 04:23 Temperature 98.8 F Pulse Rate 83 Respiratory Rate 22 Blood Pressure 142/69 O2 Sat by Pulse Oximetry 100 Orders Category Date Time Status CHEST-PORTABLE [RAD] Stat Exams 11/21/16 04:24 Ordered CBC WITH ELECTRONIC DIFF [HEME] Stat Lab 11/21/16 04:24 Uncollected CMP [COMPREHENSIVE METABOLIC PANEL] [CHEM] Stat Lab 11/21/16 04:24 Uncollected LIPASE [CHEM] Stat Lab 11/21/16 04:24 Uncollected MAGNESIUM [CHEM] Stat Lab 11/21/16 04:24 Uncollected TYPE & SCREEN [BBK] Stat Lab 11/21/16 04:24 Uncollected Result Diagrams: 11/21/16 04:45 11/21/16 04:45 - XRAY 1 XRAY Study: Chest (new large left plueral effusion) Departure - Departure Time of Disposition Decision: 05:58 DIAGNOSIS: Hypokalemia, Pleural effusion GI bleed Qualifiers: GI bleed type/associated pathology: unspecified gastrointestinal hemorrhage type Qualified Code(s): K92.2 - Gastrointestinal hemorrhage, unspecified Renal carcinoma Qualifiers: Laterality: left Qualified Code(s): C64.2 - Malignant neoplasm of left kidney, except renal pelvis Disposition: ADMITTED INPATIENT 09 Certified Medical Emergency: Emergent Condition: Good - Critical Care Note This patient required my direct & personal management of CC.: No
[2016-11-21 05:22] LABS: BASO% 0.1 % (0.0-0.8); EOS# 0.13 X1000 (0.0-0.7); HEMATOCRIT 25.5 % (37.0-47.0); HEMOGLOBIN 7.6 g/dL (12.0-16.0); IMM GRAN# 0.05 X1000 (0.0-0.04); IMM GRAN% 0.4 % (0.0-0.5); MANUAL DIFF NEEDED? NO; MCH 22.2 PG (27-31); MCHC 29.8 g/dL (33-37); MCV 74.6 FL (81-99); MONO# 0.84 X1000 (0.11-0.59); MONO% 6.3 % (1.7-9.3); MPV 9.3 FL (7.4-10.4); NEUT% 86.2 % (42.2-75.2); PLT 306 X1000 (130-400); RBC 3.42 XMIL (4.2-5.4)
[2016-11-21 05:32] LABS: ALBUMIN 2.5 g/dL (3.5-5.0); CALCIUM 8.6 mg/dL (8.8-10.2); MAGNESIUM 1.2 mg/dL (1.5-2.7); POTASSIUM 2.8 mmol/L (3.5-5.1); TOTAL BILIRUBIN 0.17 mg/dL (0.20-1.00); TOTAL PROTEIN 5.8 g/dL (6.3-8.3)
[2016-11-21] MEDS ORDERED: PROTONIX 80 MG in NS 80 ML IV ONE (05:50)
[2016-11-21] MEDS ORDERED: ZOFRAN IV ONE (05:51)
[2016-11-21] MEDS: PROTONIX 80 MG in NS 80 ML IV SCH ×2 (06:52→17:58)
[2016-11-21] MEDS ORDERED: POTASSIUM PHOSPHATE 30 MMOL in NS 250 ML IV ONE (08:10)
[2016-11-21] MEDS ORDERED: MAGNESIUM SULFATE 4 GM/S.W.I. 4 GM/100 ML IVPB IV ONE (08:11)
--- NOTE | 2016-11-21 08:14 | Diag Imaging Result Doc PS360 ---
EXAM: ANGIOGRAM/PULMONARY ARTERIES COMPARISON: None. FINDINGS: There is no evidence of pulmonary embolism. There is fairly extensive atherosclerotic calcification throughout the aorta. There is stable cardiomegaly. There is a small pericardial effusion that has developed during the interval. There is extensive coronary artery calcification. There is a stable large hiatal hernia. There are bilateral small pleural effusions that are larger than the previous study. There is mild bibasilar atelectasis. There are trace calcified pleural plaques at the posterior aspect of the right lung, stable. There is a stable 9.4 mm right apical pulmonary nodule. As seen on the previous study, there is masslike prominence at the upper pole of the left kidney as well as left retroperitoneal lymphadenopathy, stable. There is stable prominence of the left renal pelvis. Limited views of the upper abdomen are essentially stable as compared to the recent prior study. IMPRESSION: 1. Development of a small pericardial effusion. 2. Bilateral small pleural effusions that are larger than the previous study. 3. Stable small right apical nodule. 4. Stable large hiatal hernia. 5. Stable cardiomegaly. 6. Stable masslike prominence at the upper pole of left kidney with left retroperitoneal lymphadenopathy. 7. No evidence of pulmonary embolism. 8. Other incidental/nonacute findings detailed above. Electronically signed by Alex Faye 11/21/2016 8:11 AM
[2016-11-21] MEDS ORDERED: NS 1,000 ML IV SCH (08:20)
--- NOTE | 2016-11-21 08:58 | Diag Imaging Result Doc PS360 ---
CHEST-PORTABLE - 11/21/2016 INDICATION: Vomiting blood COMPARISON: 11/13/2016 FINDINGS: Stable cardiomegaly. There is improvement in the infiltrate at the right lung base. No new infiltrates. Pulmonary vascularity is slightly distended stable from prior. IMPRESSION: Improved aeration of the right lung base. Cardiomegaly and pulmonary vascular congestion. Electronically signed by Eduardo Jaimes 11/21/2016 8:56 AM
--- NOTE | 2016-11-21 09:44 | HISTORY AND PHYSICAL ---
CHIEF COMPLAINT: Hematemesis. HISTORY OF PRESENT ILLNESS: Mrs. Kumar is an 86-year-old female known to our service. 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 The patient has advanced dementia and is unable to give us any type of history. When the patient was discharged last week, the plan was to send her back to [facility] and place her on hospice per her daughter's request. Unfortunately, the patient's daughter lives in [place], and there has been some lag time in getting all the paperwork completed. This morning, the patient started vomiting blood and they sent her back to our ER for evaluation. In the ER, she was noted to be anemic with a hemoglobin of 7.6. She was also noted to be hypokalemic, hypomagnesemic, and with mild worsening renal failure from previous admission. We again spoke with the daughter whose wishes remain the same for her mother to be DNR LEVEL 1 and for us to set her up with hospice via [facility]. We have already spoken with Social Work, and they are setting up hospice and discussing plans with [facility]. In the meantime, we are going to give her some blood, fluids, and electrolytes and admit her to the floor and, hopefully, discharge her to hospice once everything has been set up. PAST MEDICAL HISTORY: 1. Advanced dementia. 2. 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 Farias. 3. Known upper GI bleed followed by Dr. Ghazal Palcaio. During last admission, the daughter/power of banking attorney deferred any type of aggressive endoscopic evaluation. 4. Recent healthcare associated pneumonia. 5. Paroxysmal atrial fibrillation. 6. Hypertension. 7. Hypothyroidism. 8. Osteoporosis. 9. GERD. 10. CAD. SURGICAL HISTORY: Abdominal hernia repair, hysterectomy, CABG, recent cystoscopy. SOCIAL HISTORY: The patient currently resides at [facility]. No history of tobacco, alcohol or drug use. Her daughter, Naomy Lopez, is her power of banking attorney. She currently resides in [place]. FAMILY HISTORY: Noncontributory. HOME MEDICATIONS: 1. Augmentin p.o. q.12 hours. 2. Ciprofloxacin 500 mg p.o. b.i.d. 3. Digoxin 125 mcg daily. 4. Cardizem CD 120 mg daily. 5. Lasix 40 mg p.o. b.i.d. 6. Icar-C one b.i.d. 7. Isosorbide mononitrate 30 mg daily. 8. Synthroid 50 mcg p.o. daily. 9. Lisinopril 20 mg daily. 10. Asacol 800 mg b.i.d. 11. Toprol-XL 25 mg daily. 12. Thera-M 1 daily. 13. Prilosec 40 mg daily. 14. MiraLAX 17 g as directed. 15. Carafate 1 g p.o. q.6 hours. ALLERGIES: Codeine, sulfa, and "mycins." REVIEW OF SYSTEMS: Unable to be obtained. PHYSICAL EXAMINATION: VITAL SIGNS: Blood pressure is 138/70. Heart rate 78, respiratory rate 20, O2 saturation 97% on room air. Temperature is 98.8 degrees. GENERAL: This is a frail and elderly-appearing 86-year-old female, lying in the hospital bed in no acute distress. NEUROLOGIC: The patient is disoriented, but she does follow commands with generalized global weakness. HEENT: Head is atraumatic and normocephalic. Her pupils are equal, round, and reactive to light. Her oral mucosa is dry. Trachea is midline. Neck is supple. No JVD. CHEST: Clear to auscultation, diminished over the left lung base. CARDIOVASCULAR: Regular. S1-S2 noted. 2/6 systolic ejection murmur noted. GASTROINTESTINAL: Right upper and lower quadrant tenderness to palpation. The overall belly is soft and nondistended, nontender. Bowel sounds are hypoactive. EXTREMITIES: Without edema, clubbing, or cyanosis. Pulses are palpable but diminished bilaterally. DIAGNOSTIC DATA: CTA of the chest shows development of small pericardial effusion. Bilateral small pleural effusions that are larger than previous study. Stable right apical nodule. Stable large hiatal hernia. Stable cardiomegaly. Stable mass-like prominence at the upper pole of the left kidney with left retroperitoneal lymphadenopathy. No evidence of PE. WBC 13.44, hemoglobin 7.6, hematocrit 25.5, platelet count 306,000. Sodium 146, potassium 2.8, chloride 108, CO2 of 26, anion gap 12. BUN 9, creatinine 1.6. Glucose 125, calcium 8.6, magnesium 1.2, bilirubin 0.17. AST 14, ALT 8. Alkaline phosphatase 54, albumin 2.5, lipase 28. ASSESSMENT AND PLAN: 1. Hematemesis: The patient has been placed on a Protonix drip in the ER. We will continue this. Keep her n.p.o. and IV fluids at a low rate. The power of banking attorney does not wish for any aggressive evaluations or interventions. 2. Acute blood loss anemia: Secondary to #1. We have ordered 2 units of PRBCs, and we will transfuse these over the next few hours. 3. Hypomagnesium/hypokalemia: We have ordered IV electrolyte replacement. We will continue to monitor. 4. Acute kidney injury: Continue IV fluids and discontinue any nephrotoxic medications. 5. Volume depletion: We had added IV fluids. Discontinued her Lasix. 6. Leukocytosis: Chest x-ray is unrevealing for any acute infiltrate. We will check a urinalysis and will go from there. At this time, she is afebrile with no signs of Systemic Inflammatory Response Syndrome or sepsis. 7. At this time, we spoke with her daughter/power of banking attorney who wishes for the patient to be discharged on hospice via [facility]. We have spoken with Social Work and are in the process of setting this up. She should be stable to leave within the next 24 hours. 8. Deep venous thrombosis prophylaxis with sequential compression devices given her gastrointestinal bleeding. Dictated by GHADA Bray for Sera Sorensen MD cc: GHADA Bray MD
[2016-11-21] MEDS: POTASSIUM CHLORIDE 20 MEQ/SWI 20 MEQ/100 ML IVPB IV SCH ×2 (11:39→16:27)
[2016-11-21] MEDS: D5 1/2 NS 1,000 ML IV SCH (13:17)
[2016-11-21] MEDS ORDERED: NS 500 ML ONE (13:35)
[2016-11-21 19:26] LABS: HEMATOCRIT 31.2 % (37.0-47.0); HEMOGLOBIN 9.9 g/dL (12.0-16.0); MCH 24.2 PG (27-31); MCHC 31.7 g/dL (33-37); MCV 76.3 FL (81-99); MPV 9.3 FL (7.4-10.4); RBC 4.09 XMIL (4.2-5.4)
[2016-11-21 19:43] LABS: CALCIUM 8.6 mg/dL (8.8-10.2); MAGNESIUM 2.8 mg/dL (1.5-2.7); POTASSIUM 3.2 mmol/L (3.5-5.1)
[2016-11-22] MEDS: D5 1/2 NS 1,000 ML IV SCH ×2 (02:00→02:44)
[2016-11-22] MEDS: PROTONIX 80 MG in NS 80 ML IV SCH (02:44)
[2016-11-22 05:28] VITALS: BP 133/74
--- NOTE | 2016-11-22 11:10 | DISCHARGE SUMMARY ---
ADMISSION DATE: 11/21/2016 DISCHARGE DATE: 11/22/2016 FINAL DISCHARGE DIAGNOSES: 1. Gastrointestinal bleed. 2. Acute kidney injury. 3. Paroxysmal atrial fibrillation. 4. Hypokalemia. 5. Hypomagnesemia. 6. Leukocytosis. 7. Advanced dementia. 8. Hypertension. HOSPITAL COURSE: Ms. Kumar is a 86-year-old female with a history of multiple medical problems, who was sent from the assisted after the patient was noted to be having hematemesis. This was discussed with the patient's daughter and [id number] who decided to defer any aggressive endoscopic treatment. The patient was admitted to the hospitalist's service and social media project manager was consulted to assist with hospice initiation. The arrangements were made for the patient to continue with hospice via [facility] once the patient gets back to [facility]. The patient is currently a DNR level 1. The patient is ready for discharge back to [facility] with hospice services. DISCHARGE MEDICATIONS: 1. Prilosec 40 mg p.o. daily. 2. Synthroid 50 mcg oral daily. 3. Carafate 1 g oral every 6 hours. DISCHARGE DIET: Regular diet. ACTIVITY: As tolerated. FOLLOWUP INSTRUCTIONS: The patient will be discharged back to [facility] with [facility]. cc: Sera Sorensen MD
== END 2016-11-22 12:09 ==
LOC: EDIPHOLD 04:11 → ED 04:11 → 4N 12:01
PROVIDERS: ATTEND Internal Medicine